=== PATIENT | female | born 1990 | race Caucasian/White ===

== ENCOUNTER 2017-01-07 07:19 | Emergency (ER) | payer OTHER ==
[2017-01-07] MEDS ORDERED: ONDANSETRON 4 MG/2 ML VIAL IVP STA (08:12)
[2017-01-07] MEDS ORDERED: SODIUM CHLORIDE 0.9% 1,000 ML IV STA (08:12)
[2017-01-07] MEDS ORDERED: FAMOTIDINE 20 MG/2 ML VIAL IV STA (08:17)
--- NOTE | 2017-01-07 08:19 | ED ---
Nausea/Vomiting/Diarrhea HPI - General Chief complaint: Nausea/Vomiting/Diarrhea Stated complaint: vomiting blood Time Seen by Provider: 01/07/17 08:11 Source: patient, RN notes reviewed Mode of arrival: ambulatory Limitations: no limitations - History of Present Illness Initial comments: 26-year-old female presents emergency Department chief complaint nausea vomiting diarrhea for 3 days. Patient states that every time she gets worse. Patient states cannot keep anything down. Patient states that she tried to rest throughout the weekend when she had work off. Patient states that she went to work today vomited violently and states that she saw a spot of blood. Patient states there is no large blood clots or large amount of blood. Patient states she has some epigastric, left upper quadrant abdominal pain. She states is has been present since she started vomiting. She does admit to some heartburn on a regular basis. Patient denies fever, chills, night sweats, chest pain or shortness of breath. Patient had a prior cholecystectomy 2014 and 2015. Patient denies any dysuria or hematuria. Patient states her diarrhea is watery. She denies any melena or hematochezia. - Related Data Previous Rx's Medication Instructions Recorded Omeprazole [PriLOSEC] 20 mg PO AC-BRKFST #14 cap 01/07/17 Ondansetron Odt [Zofran Odt] 4 mg PO Q8HR PRN #10 tab 01/07/17 Allergies Allergy/AdvReac Type Severity Reaction Status Date / Time latex Allergy Rash/Hives Verified 01/07/17 08:27 naproxen Allergy Rash/Hives Verified 01/07/17 08:27 tramadol HCl [From Ultram] Allergy Rash/Hives Verified 01/07/17 08:27 Review of Systems ROS Statement: Those systems with pertinent positive or pertinent negative responses have been documented in the HPI. ROS Other: All systems not noted in ROS Statement are negative. Past Medical History Past Medical History: No Reported History Additional Past Medical History / Comment(s): currently having urinary frequency ,abd pain,hx uti's History of Any Multi-Drug Resistant Organisms: None Reported Past Surgical History: Section, Cholecystectomy Past Anesthesia/Blood Transfusion Reactions: No Reported Reaction Additional Past Anesthesia/Blood Transfusion Reaction / Comment(s): elevated heart rate during procedure Past Psychological History: Anxiety, Bipolar Additional Psychological History / Comment(s): no meds since 17 yrs old Smoking Status: Former smoker Past Alcohol Use History: None Reported Additional Past Alcohol Use History / Comment(s): started smoking 2006 Past Drug Use History: None Reported - Past Family History Mother Family Medical History: Cancer, Coronary Artery Disease (CAD), Diabetes Mellitus , Fibromyalgia, Hypertension Additional Family Medical History / Comment(s): heart stent,uterine and ovarian ca Father Family Medical History: Myocardial Infarction ([place]) Additional Family Medical History / Comment(s): [place] x 2, committed suicide when pt at 17 yrs old. General Exam Limitations: no limitations General appearance: alert, in no apparent distress ENT exam: Present: normal oropharynx Neck exam: Present: normal inspection, full ROM. Absent: tenderness, meningismus, lymphadenopathy Respiratory exam: Present: normal lung sounds bilaterally. Absent: respiratory distress, wheezes, rales, rhonchi, stridor Cardiovascular Exam: Present: regular rate, normal rhythm, normal heart sounds. Absent: systolic murmur, diastolic murmur, rubs, gallop, clicks GI/Abdominal exam: Present: soft, tenderness (Mild to moderate epigastric, left upper quadrant tenderness), normal bowel sounds. Absent: distended, guarding, rebound, rigid Back exam: Absent: CVA tenderness (R), CVA tenderness (L) Skin exam: Present: warm, dry, intact, normal color. Absent: rash Course Vital Signs 01/07/17 01/07/17 01/07/17 07:25 08:25 09:26 Temperature 98.4 F Pulse Rate 103 H 82 82 Respiratory 18 16 16 Rate Blood Pressure 123/80 111/72 111/74 O2 Sat by Pulse 98 99 99 Oximetry Medical Decision Making - Medical Decision Making 26-year-old female presented for nausea vomiting. Patient states she feels better after Zofran. Patient was given GI cocktail for gastritis states symptoms. Patient be discharged on omeprazole and Zofran. Return parameters were discussed. - Lab Data Result diagrams: 01/07/17 07:40 01/07/17 07:40 Lab Results 01/07/17 01/07/17 01/07/17 Range/Units 07:29 07:29 07:40 WBC (3.8-10.6) k/uL RBC (3.80-5.40) m/uL Hgb (11.4-16.0) gm/dL Hct (34.0-46.0) % MCV (80.0-100.0) fL MCH (25.0-35.0) pg MCHC (31.0-37.0) g/dL RDW (11.5-15.5) % Plt Count (150-450) k/uL Neutrophils % % Lymphocytes % % Monocytes % % Eosinophils % % Basophils % % Neutrophils # (1.3-7.7) k/uL Lymphocytes # (1.0-4.8) k/uL Monocytes # (0-1.0) k/uL Eosinophils # (0-0.7) k/uL Basophils # (0-0.2) k/uL Microcytosis Sodium 140 (137-145) mmol/L Potassium 3.5 (3.5-5.1) mmol/L Chloride 109 H (98-107) mmol/L Carbon Dioxide 18 L (22-30) mmol/L Anion Gap 13 mmol/L BUN 13 (7-17) mg/dL Creatinine 0.84 (0.52-1.04) mg/dL Est GFR (MDRD) Af Amer >60 (>60 ml/min/1.73 sqM) Est GFR (MDRD) Non-Af >60 (>60 ml/min/1.73 sqM) Glucose 91 (74-99) mg/dL Calcium 9.2 (8.4-10.2) mg/dL Total Bilirubin 0.5 (0.2-1.3) mg/dL AST 32 (14-36) U/L ALT 54 H (9-52) U/L Alkaline Phosphatase 79 (38-126) U/L Total Protein 8.0 (6.3-8.2) g/dL Albumin 4.3 (3.5-5.0) g/dL Amylase 57 (30-110) U/L Lipase 171 (23-300) U/L Urine Color Yellow Urine Appearance Cloudy H (Clear) Urine pH 6.0 (5.0-8.0) Ur Specific [place] 1.024 (1.001-1.035) Urine Protein 1+ H (Negative) Urine Glucose (UA) Negative (Negative) Urine Ketones Negative (Negative) Urine Blood Moderate H (Negative) Urine Nitrite Negative (Negative) Urine Bilirubin Negative (Negative) Urine Urobilinogen <2.0 (<2.0) mg/dL Ur Leukocyte Esterase Trace H (Negative) Urine RBC 5 (0-5) /hpf Urine WBC 4 (0-5) /hpf Ur Squamous Epith Cells 3 (0-4) /hpf Urine Bacteria Rare H (None) /hpf Urine Mucus Rare H (None) /hpf Urine HCG, Qual Not Detected (Not Detectd) 01/07/17 Range/Units 07:40 WBC 11.0 H (3.8-10.6) k/uL RBC 5.19 (3.80-5.40) m/uL Hgb 13.4 (11.4-16.0) gm/dL Hct 39.6 (34.0-46.0) % MCV 76.3 L (80.0-100.0) fL MCH 25.9 (25.0-35.0) pg MCHC 34.0 (31.0-37.0) g/dL RDW 14.7 (11.5-15.5) % Plt Count 398 (150-450) k/uL Neutrophils % 70 % Lymphocytes % 21 % Monocytes % 5 % Eosinophils % 1 % Basophils % 1 % Neutrophils # 7.6 (1.3-7.7) k/uL Lymphocytes # 2.3 (1.0-4.8) k/uL Monocytes # 0.6 (0-1.0) k/uL Eosinophils # 0.1 (0-0.7) k/uL Basophils # 0.1 (0-0.2) k/uL Microcytosis Slight Sodium (137-145) mmol/L Potassium (3.5-5.1) mmol/L Chloride (98-107) mmol/L Carbon Dioxide (22-30) mmol/L Anion Gap mmol/L BUN (7-17) mg/dL Creatinine (0.52-1.04) mg/dL Est GFR (MDRD) Af Amer (>60 ml/min/1.73 sqM) Est GFR (MDRD) Non-Af (>60 ml/min/1.73 sqM) Glucose (74-99) mg/dL Calcium (8.4-10.2) mg/dL Total Bilirubin (0.2-1.3) mg/dL AST (14-36) U/L ALT (9-52) U/L Alkaline Phosphatase (38-126) U/L Total Protein (6.3-8.2) g/dL Albumin (3.5-5.0) g/dL Amylase (30-110) U/L Lipase (23-300) U/L Urine Color Urine Appearance (Clear) Urine pH (5.0-8.0) Ur Specific [place] (1.001-1.035) Urine Protein (Negative) Urine Glucose (UA) (Negative) Urine Ketones (Negative) Urine Blood (Negative) Urine Nitrite (Negative) Urine Bilirubin (Negative) Urine Urobilinogen (<2.0) mg/dL Ur Leukocyte Esterase (Negative) Urine RBC (0-5) /hpf Urine WBC (0-5) /hpf Ur Squamous Epith Cells (0-4) /hpf Urine Bacteria (None) /hpf Urine Mucus (None) /hpf Urine HCG, Qual (Not Detectd) Disposition Clinical Impression: Gastritis, Nausea & vomiting Disposition: HOME SELF-CARE Condition: Stable Instructions: Acute Nausea and Vomiting (ED) Additional Instructions: Please return to the Emergency Department if symptoms worsen or any other concerns. Prescriptions: Omeprazole [PriLOSEC] 20 mg PO AC-BRKFST #14 cap Ondansetron Odt [Zofran Odt] 4 mg PO Q8HR PRN #10 tab PRN Reason: Nausea Time of Disposition: 09:43
[2017-01-07 08:23] LABS: Basophils # (A) 0.1 k/uL (0-0.2); Basophils % (A) 1 %; CH 26.3; CHCM 34.6; Eosinophils # (A) 0.1 k/uL (0-0.7); Eosinophils % (A) 1 %; HCT 39.6 % (34.0-46.0); HDW 3.35; HGB 13.4 gm/dL (11.4-16.0); Luc # (Auto) 0.33; Luc % (Auto) 3; Lymphocytes # (A) 2.3 k/uL (1.0-4.8); Lymphocytes % (A) 21 %; MCH 25.9 pg (25.0-35.0); MCV 76.3 fL (80.0-100.0); Mean Platelet Volume 7.4; Microcytosis Slight; Monocytes # (A) 0.6 k/uL (0-1.0); Monocytes % (A) 5 %; Neutrophils # (A) 7.6 k/uL (1.3-7.7); Neutrophils % (A) 70 %; RBC 5.19 m/uL (3.80-5.40); RDW 14.7 % (11.5-15.5); WBC (Perox) 11.12
[2017-01-07 08:26] VITALS: RESP 16
[2017-01-07 08:41] LABS: ALT 54 U/L (9-52); AST 32 U/L (14-36); Alkaline Phosphatase 79 U/L (38-126); Amylase 57 U/L (30-110); Anion Gap 13 mmol/L; Blood Urea Nitrogen 13 mg/dL (7-17); Calcium 9.2 mg/dL (8.4-10.2); Carbon Dioxide 18 mmol/L (22-30); Chloride 109 mmol/L (98-107); Glucose 91 mg/dL (74-99); Non-African American GFR(MDRD) >60 (>60 ml/min/1.73 sqM); Potassium 3.5 mmol/L (3.5-5.1); Sodium 140 mmol/L (137-145); Total Bilirubin 0.5 mg/dL (0.2-1.3)
--- NOTE | 2017-01-07 08:51 | XR ---
EXAMINATION TYPE: XR KUB DATE OF EXAM: 01/07/2017 8:35 AM COMPARISON: December 15, 2010 HISTORY: Pain TECHNIQUE: Single supine KUB image of the abdomen is obtained FINDINGS: Small bowel demonstrates no evidence for dilatation or air fluid levels. Gas and fecal material is seen in non-distended colon. No convincing evidence for pneumoperitoneum. No unusual calcifications. The lung bases are clear. The osseous structures are intact. IMPRESSION: 1. Overall nonobstructive bowel gas pattern.
[2017-01-07 08:53] LABS: Appearance,Urine Cloudy (Clear); Bacteria,Urine Rare /hpf; Bilirubin,Urine Negative (Negative); Glucose,Urine (UA) Negative (Negative); Ketones,Urine Negative (Negative); Leukocyte Esterase,Urine Trace (Negative); Mucus,Urine Rare /hpf; Nitrite,Urine Negative (Negative); Particle Count 4714; Protein,Urine 1+ (Negative); RBC,Urine 5 /hpf (0-5); Specific Gravity,Urine 1.024 (1.001-1.035); Squamous Epithelial Cell,Urine 3 /hpf (0-4); UA Billing (MACRO vs. MICRO) MICRO; Urobilinogen,Urine <2.0 mg/dL (<2.0); WBC,Urine 4 /hpf (0-5)
[2017-01-07] MEDS ORDERED: MAG HYDROX/AL HYDROX/SIMETH 30 ML, HYOSCYAMINE ELIXIR 10 ML, CIMETIDINE HCL 300 MG PO STA ×3 (09:15)
[2017-01-07 09:56] VITALS: BP 124/78; PULSE 87; TEMP 97
== END 2017-01-07 09:56 | disposition home or self-care (01) ==
LOC: EC 07:19
DX: K52.9 Noninfective gastroenteritis and colitis, unspecified (principal); R11.2 Nausea with vomiting, unspecified; Z87.891 Personal history of nicotine dependence; Z90.49 Acquired absence of other specified parts of digestive tract; Z91.040 Latex allergy status; Z88.8 Allergy status to other drugs, medicaments and biological substances; Z88.5 Allergy status to narcotic agent; Z79.899 Other long term (current) drug therapy
CPT/HCPCS: 99284; 96374; 96375; 96361; 36415; 80053; 82150; 83690; 85025; 81001; 81025; 74000; J2405

== ENCOUNTER 2018-06-27 11:43 | Emergency (ER) | payer BC, OTHER ==
[2018-06-27 12:54] VITALS: TEMP 98.3
--- NOTE | 2018-06-27 13:07 | ED ---
General Adult HPI - General Chief complaint: Vaginal Bleeding Stated complaint: 5 weeks & bleeding Time Seen by Provider: 06/27/18 12:56 Source: patient, RN notes reviewed, old records reviewed Mode of arrival: ambulatory Limitations: no limitations - History of Present Illness Initial comments: 28-year-old female presents for evaluation of lower abdominal pressure and vaginal bleeding. Patient is proximally 6 weeks , last menstrual period was beginning of May. She is with one previous miscarriage. She is otherwise healthy. States that she had moderate bleeding which is improved, no clots or tissue passed. No significant pain. No dysuria or hematuria. - Related Data Previous Rx's Medication Instructions Recorded Cephalexin [Keflex] 500 mg PO Q12HR #14 cap 06/27/18 Allergies Allergy/AdvReac Type Severity Reaction Status Date / Time latex Allergy Rash/Hives Verified 06/27/18 14:03 naproxen Allergy Rash/Hives Verified 06/27/18 14:03 tramadol HCl [From Ultram] Allergy Rash/Hives Verified 06/27/18 14:03 Review of Systems ROS Statement: Those systems with pertinent positive or pertinent negative responses have been documented in the HPI. ROS Other: All systems not noted in ROS Statement are negative. Past Medical History Past Medical History: No Reported History Additional Past Medical History / Comment(s): currently having urinary frequency ,abd pain,hx uti's History of Any Multi-Drug Resistant Organisms: None Reported Past Surgical History: Section, Cholecystectomy, Orthopedic Surgery Additional Past Surgical History / Comment(s): carpal tunnel release right hand Past Anesthesia/Blood Transfusion Reactions: No Reported Reaction Additional Past Anesthesia/Blood Transfusion Reaction / Comment(s): elevated heart rate during procedure Past Psychological History: Anxiety, Bipolar Smoking Status: Former smoker Past Alcohol Use History: None Reported Past Drug Use History: None Reported - Past Family History Mother Family Medical History: Cancer, Coronary Artery Disease (CAD), Diabetes Mellitus , Fibromyalgia, Hypertension Additional Family Medical History / Comment(s): heart stent,uterine and ovarian ca Father Family Medical History: Myocardial Infarction ([place]) Additional Family Medical History / Comment(s): [place] x 2, committed suicide when pt at 17 yrs old. General Exam Limitations: no limitations General appearance: alert, in no apparent distress Head exam: Present: atraumatic, normocephalic Eye exam: Present: normal appearance, PERRL ENT exam: Present: normal exam Neck exam: Present: normal inspection. Absent: tenderness, meningismus Respiratory exam: Present: normal lung sounds bilaterally. Absent: respiratory distress, wheezes Cardiovascular Exam: Present: regular rate, normal rhythm GI/Abdominal exam: Present: soft. Absent: distended, tenderness, guarding, rebound Extremities exam: Present: normal inspection, normal capillary refill. Absent: pedal edema, calf tenderness Neurological exam: Present: alert, oriented X3, CN II-XII intact. Absent: motor sensory deficit Psychiatric exam: Present: normal affect, normal mood Skin exam: Present: warm, dry, intact. Absent: cyanosis, diaphoretic Course Vital Signs 06/27/18 06/27/18 12:50 15:00 Temperature 98.3 F Pulse Rate 86 86 Respiratory 18 16 Rate Blood Pressure 118/80 118/74 O2 Sat by Pulse 100 99 Oximetry Medical Decision Making - Medical Decision Making 28-year-old female presenting with early and vaginal bleeding. Patient has O+ blood. Hemoglobin is stable 11.6, she has normal vital signs and is well-appearing, no abdominal tenderness, no rebound or guarding. She has a beta hCG 1682. Urinalysis does show rare bacteria. Ultrasound is does show findings consistent with early IUP, likely threatened miscarriage, this does not completely rule out ectopic . Patient will receive repeat beta hCG in 48 hours. She will follow-up with her [employer]. She will return with worsening or changing abdominal pain or increased bleeding. - Lab Data Result diagrams: 06/27/18 13:05 06/27/18 13:05 Lab Results 06/27/18 06/27/18 06/27/18 Range/Units 13:00 13:00 13:05 WBC (3.8-10.6) k/uL RBC (3.80-5.40) m/uL Hgb (11.4-16.0) gm/dL Hct (34.0-46.0) % MCV (80.0-100.0) fL MCH (25.0-35.0) pg MCHC (31.0-37.0) g/dL RDW (11.5-15.5) % Plt Count (150-450) k/uL Neutrophils % % Lymphocytes % % Monocytes % % Eosinophils % % Basophils % % Neutrophils # (1.3-7.7) k/uL Lymphocytes # (1.0-4.8) k/uL Monocytes # (0-1.0) k/uL Eosinophils # (0-0.7) k/uL Basophils # (0-0.2) k/uL Sodium (137-145) mmol/L Potassium (3.5-5.1) mmol/L Chloride (98-107) mmol/L Carbon Dioxide (22-30) mmol/L Anion Gap mmol/L BUN (7-17) mg/dL Creatinine (0.52-1.04) mg/dL Est GFR (CKD-EPI)AfAm (>60 ml/min/1.73 sqM) Est GFR (CKD-EPI)NonAf (>60 ml/min/1.73 sqM) Glucose (74-99) mg/dL Calcium (8.4-10.2) mg/dL Total Bilirubin (0.2-1.3) mg/dL AST (14-36) U/L ALT (9-52) U/L Alkaline Phosphatase (38-126) U/L Total Protein (6.3-8.2) g/dL Albumin (3.5-5.0) g/dL HCG, Quant mIU/mL Urine Color Yellow Urine Appearance Clear (Clear) Urine pH 6.5 (5.0-8.0) Ur Specific [place] 1.018 (1.001-1.035) Urine Protein Trace H (Negative) Urine Glucose (UA) Negative (Negative) Urine Ketones Negative (Negative) Urine Blood Negative (Negative) Urine Nitrite Negative (Negative) Urine Bilirubin Negative (Negative) Urine Urobilinogen <2.0 (<2.0) mg/dL Ur Leukocyte Esterase Small H (Negative) Urine RBC 2 (0-5) /hpf Urine WBC 5 (0-5) /hpf Ur Squamous Epith Cells <1 (0-4) /hpf Urine Bacteria Rare H (None) /hpf Urine Mucus Rare H (None) /hpf Urine HCG, Qual Detected (Not Detectd) Blood Type O Positive Blood Type Recheck No 06/27/18 06/27/18 Range/Units 13:05 13:05 WBC 9.0 (3.8-10.6) k/uL RBC 4.33 (3.80-5.40) m/uL Hgb 11.6 (11.4-16.0) gm/dL Hct 35.8 (34.0-46.0) % MCV 82.6 (80.0-100.0) fL MCH 26.7 (25.0-35.0) pg MCHC 32.3 (31.0-37.0) g/dL RDW 14.6 (11.5-15.5) % Plt Count 318 (150-450) k/uL Neutrophils % 62 % Lymphocytes % 29 % Monocytes % 5 % Eosinophils % 2 % Basophils % 1 % Neutrophils # 5.6 (1.3-7.7) k/uL Lymphocytes # 2.6 (1.0-4.8) k/uL Monocytes # 0.5 (0-1.0) k/uL Eosinophils # 0.2 (0-0.7) k/uL Basophils # 0.1 (0-0.2) k/uL Sodium 139 (137-145) mmol/L Potassium 4.3 (3.5-5.1) mmol/L Chloride 109 H (98-107) mmol/L Carbon Dioxide 24 (22-30) mmol/L Anion Gap 6 mmol/L BUN 13 (7-17) mg/dL Creatinine 0.76 (0.52-1.04) mg/dL Est GFR (CKD-EPI)AfAm >90 (>60 ml/min/1.73 sqM) Est GFR (CKD-EPI)NonAf >90 (>60 ml/min/1.73 sqM) Glucose 82 (74-99) mg/dL Calcium 9.1 (8.4-10.2) mg/dL Total Bilirubin 0.3 (0.2-1.3) mg/dL AST 18 (14-36) U/L ALT 17 (9-52) U/L Alkaline Phosphatase 41 (38-126) U/L Total Protein 6.5 (6.3-8.2) g/dL Albumin 3.6 (3.5-5.0) g/dL HCG, Quant 1682.1 mIU/mL Urine Color Urine Appearance (Clear) Urine pH (5.0-8.0) Ur Specific [place] (1.001-1.035) Urine Protein (Negative) Urine Glucose (UA) (Negative) Urine Ketones (Negative) Urine Blood (Negative) Urine Nitrite (Negative) Urine Bilirubin (Negative) Urine Urobilinogen (<2.0) mg/dL Ur Leukocyte Esterase (Negative) Urine RBC (0-5) /hpf Urine WBC (0-5) /hpf Ur Squamous Epith Cells (0-4) /hpf Urine Bacteria (None) /hpf Urine Mucus (None) /hpf Urine HCG, Qual (Not Detectd) Blood Type Blood Type Recheck Disposition Clinical Impression: Threatened miscarriage in early Disposition: HOME SELF-CARE Condition: Good Instructions: Threatened Miscarriage (ED) Prescriptions: Cephalexin [Keflex] 500 mg PO Q12HR #14 cap Is patient prescribed a controlled substance at d/c from ED?: No Referrals: Frankie Tipton NPC [REFERRING] - 1-2 days Marva Conteh MD [STAFF PHYSICIAN] - 1-2 days Time of Disposition: 15:30
[2018-06-27 13:23] LABS: Appearance,Urine Clear (Clear); Bacteria,Urine Rare /hpf; Bilirubin,Urine Negative (Negative); Blood,Urine Negative (Negative); Color,Urine Yellow; Glucose,Urine (UA) Negative (Negative); Ketones,Urine Negative (Negative); Leukocyte Esterase,Urine Small (Negative); Mucus,Urine Rare /hpf; Nitrite,Urine Negative (Negative); PH, Urine 6.5 (5.0-8.0); Protein,Urine Trace (Negative); RBC,Urine 2 /hpf (0-5); Specific Gravity,Urine 1.018 (1.001-1.035); Squamous Epithelial Cell,Urine <1 /hpf (0-4); Urobilinogen,Urine <2.0 mg/dL (<2.0); WBC,Urine 5 /hpf (0-5)
[2018-06-27 13:43] LABS: Basophils # (A) 0.1 k/uL (0-0.2); Basophils % (A) 1 %; Eosinophils # (A) 0.2 k/uL (0-0.7); Eosinophils % (A) 2 %; HCT 35.8 % (34.0-46.0); HGB 11.6 gm/dL (11.4-16.0); Lymphocytes # (A) 2.6 k/uL (1.0-4.8); Lymphocytes % (A) 29 %; MCH 26.7 pg (25.0-35.0); MCHC 32.3 g/dL (31.0-37.0); MCV 82.6 fL (80.0-100.0); Mean Platelet Volume 7.4; Monocytes # (A) 0.5 k/uL (0-1.0); Monocytes % (A) 5 %; Neutrophils # (A) 5.6 k/uL (1.3-7.7); Neutrophils % (A) 62 %; Platelet Count 318 k/uL (150-450); RBC 4.33 m/uL (3.80-5.40); RDW 14.6 % (11.5-15.5)
[2018-06-27 13:48] LABS: ALT 17 U/L (9-52); AST 18 U/L (14-36); Albumin 3.6 g/dL (3.5-5.0); Alkaline Phosphatase 41 U/L (38-126); Anion Gap 6 mmol/L; Blood Urea Nitrogen 13 mg/dL (7-17); Calcium 9.1 mg/dL (8.4-10.2); Carbon Dioxide 24 mmol/L (22-30); Chloride 109 mmol/L (98-107); Glucose 82 mg/dL (74-99); Potassium 4.3 mmol/L (3.5-5.1); Sodium 139 mmol/L (137-145); Total Bilirubin 0.3 mg/dL (0.2-1.3); Total Protein 6.5 g/dL (6.3-8.2)
[2018-06-27 14:02] LABS: HCG,Quantitative Serum 1682.1 mIU/mL
[2018-06-27 15:01] VITALS: RESP 16
--- NOTE | 2018-06-27 15:19 | US ---
EXAMINATION TYPE: Transabdominal DATE OF EXAM: 12/16/17 COMPARISON: NONE CLINICAL HISTORY: Pain. Positive beta hCG test. EXAM PERFORMED: Transvaginal (TV) and Transabdominal (TA) to better evaluate endometrium and ovaries EXAM MEASUREMENTS: GESTATIONAL AGE / DATING Physician Established: Not yet established Dates by LMP: (5 weeks/4 days) EDC: 02/23/2019 Dates by First Scan: No previous this is first scan Dates by Current Scan for: Unable to date by today's study MATERNAL ANATOMY Uterus: 8.7 x 4.6 x 5.6 cm; anteverted Endometrium: 1.8 cm; complex and thickened ?gest sac measuring OOR (0.5 x 0.3 x 0.5 cm) inferior to h ypoechoic area in endo (0.4 x 0.3 x 1.5cm) ?Subchorionic hemorrhage vs other etiology Right Ovary: 2.6 x 1.4 x 2.0 cm; wnl Left Ovary: 3.5 x 2.1 x 2.5 cm; Hypoechoic area left ovary with peripheral flow ?corpus luteum (1.6 x 1.7 x 1.7cm) Post CDS / Adnexa: Wnl Presence of free fluid: No Presence of corpus luteal cyst: ?Corpus luteum (1.6 x 1.7 x 1.7cm) left ovary Presence of subchorionic bleed: Hypoechoic area in endo (0.4 x 0.3 x 1.5cm) ?Subchorionic hemorrhage vs other etiology GESTATION / SURVEY MSD: 0.4 cm OOR Date of LMP: 05/19/2018 Beta HcG (if available): Not available at this time There is heterogeneous anteverted uterus. Endometrium is thickened up to 17 mm. There is oval anechoi c area measuring 5 x 3 x 5 mm. Superior to this there is curvilinear anechoic 1.4 x 0.3 x 1.5 cm. Fin dings could reflect early gestational sac and adjacent small subchorionic hemorrhage. No yolk sac or pole is clearly seen. No free fluid is seen in pelvic cul-de-sac. Both ovaries are identified. Within left ovary there is 1.7 cm thin-walled cyst favoring corpus lutea l cyst. No suspicious extraovarian adnexal lesions are seen. IMPRESSION: Findings favor too early to visualize intrauterine with small adjacent implantation or subc horionic hemorrhage but spontaneous is in differential and ectopic is not excluded . Serial beta hCG and ultrasound follow-up is advised.
[2018-06-27 15:47] VITALS: BP 120/76; PULSE 64
== END 2018-06-27 15:40 | disposition home or self-care (01) ==
LOC: EC 11:43
DX: O20.0 Threatened abortion (principal); Z3A.01 Less than 8 weeks gestation of pregnancy; Z87.891 Personal history of nicotine dependence; Z91.040 Latex allergy status; Z88.6 Allergy status to analgesic agent
CPT/HCPCS: 36415; 76801; 76817; 80053; 81001; 81025; 84702; 85025; 86900; 86901; 99284

== ENCOUNTER 2018-06-29 08:25 | Emergency (ER) | payer BC ==
[2018-06-29] MEDS ORDERED: SODIUM CHLORIDE 0.9% 1,000 ML IV ONE (08:58)
[2018-06-29] MEDS ORDERED: ACETAMINOPHEN TAB 500 MG TAB PO STA (08:58)
[2018-06-29] MEDS ORDERED: ONDANSETRON 4 MG/2 ML VIAL IVP STA (08:58)
--- NOTE | 2018-06-29 09:04 | ED ---
General Adult HPI - General Chief complaint: Abdominal Pain Stated complaint: Abd.pain Source: patient Mode of arrival: ambulatory Limitations: no limitations - History of Present Illness Initial comments: Dictation was produced using [employer] dictation software. please excuse any grammatical, word or spelling errors. Chief Complaint: 38-year-old female who is with one previous miscarriage presents with persistent pelvic pain. History of Present Illness: A 38-year-old female who was seen in the emergency department 2 days ago. Patient was evaluated for vaginal bleeding your . She is allegedly 6 weeks based on last menstrual period. She was evaluated and ultrasound did not show any signs of intrauterine . She was told to follow up with [facility] for repeat beta hCG. She came today because her pain was much worse. She denies any history of ectopic . Denies any constitutional symptoms. Patient is expressing pain in her pelvic region that is sharp without any radiation. States pain is more severe that she is ever had with . The ROS documented in this emergency department record has been reviewed and confirmed by me. Those systems with pertinent positive or negative responses have been documented in the HPI. All other systems are other negative and/or noncontributory. - Related Data Home Medications Medication Instructions Recorded Confirmed Gummies 1 tab PO DAILY 06/29/18 06/29/18 Previous Rx's Medication Instructions Recorded Cephalexin [Keflex] 500 mg PO Q12HR #14 cap 06/27/18 Acetaminophen [Tylenol] 1,000 mg PO Q4-6H PRN #24 tab 06/29/18 Allergies Allergy/AdvReac Type Severity Reaction Status Date / Time latex Allergy Rash/Hives Verified 06/29/18 08:54 naproxen Allergy Rash/Hives Verified 06/29/18 08:54 tramadol HCl [From Ultram] Allergy Rash/Hives Verified 06/29/18 08:54 Review of Systems ROS Statement: Those systems with pertinent positive or pertinent negative responses have been documented in the HPI. ROS Other: All systems not noted in ROS Statement are negative. Past Medical History Past Medical History: No Reported History Additional Past Medical History / Comment(s): currently having urinary frequency ,abd pain,hx uti's History of Any Multi-Drug Resistant Organisms: None Reported Past Surgical History: Section, Cholecystectomy, Orthopedic Surgery Additional Past Surgical History / Comment(s): carpal tunnel release right hand Past Anesthesia/Blood Transfusion Reactions: No Reported Reaction Additional Past Anesthesia/Blood Transfusion Reaction / Comment(s): elevated heart rate during procedure Past Psychological History: Anxiety, Bipolar Smoking Status: Former smoker Past Alcohol Use History: None Reported Past Drug Use History: None Reported - Past Family History Mother Family Medical History: Cancer, Coronary Artery Disease (CAD), Diabetes Mellitus , Fibromyalgia, Hypertension Additional Family Medical History / Comment(s): heart stent,uterine and ovarian ca Father Family Medical History: Myocardial Infarction ([place]) Additional Family Medical History / Comment(s): MD x 2, committed suicide when pt at 17 yrs old. General Exam - General Exam Comments Initial Comments: PHYSICAL EXAM: General Impression: Alert and oriented x3, acute distress secondary to pain HEENT: Normocephalic atraumatic, extra-ocular movements intact, pupils equal and reactive to light bilaterally, mucous membranes moist. Cardiovascular: Heart regular rate and rhythm, S1&S2 audible, no murmurs, rubs or gallops Chest: Lungs clear to auscultation bilaterally, no rhonchi, no wheeze, no rales Abdomen: Suprapubic tenderness to palpation Musculoskeletal: Pulses present and equal in all extremities, no peripheral edema Motor: Power 5/5 bilaterally, no focal deficits noted Neurological: CN II-XII grossly intact, no focal motor or sensory deficits noted Skin: Intact with no visualized rashes Psych: Normal affect and mood Limitations: no limitations Course Vital Signs 06/29/18 06/29/18 08:34 11:22 Temperature 98.4 F 98.9 F Pulse Rate 95 70 Respiratory 20 18 Rate Blood Pressure 124/84 107/72 O2 Sat by Pulse 100 99 Oximetry Medical Decision Making - Medical Decision Making ED course: 28-year-old female presents with pelvic pain and . Patient was seen here 2 days ago where she was evaluated. She was given instructions to follow up with [facility] for repeat beta-hCG in 48 hours. Patient's initial beta Quant was 1682. Vital signs upon arrival are stable.Laboratory evaluation obtained. CBC unremarkable. Hemoglobin stable at 12.5. Coag panel is unremarkable. Metabolic panel is unremarkable. Beta hCG is 2168. There is some concern of ectopic given ultrasound findings and progression of beta Quant. Discussed patient case with Dr. Conteh. Patient is O+ blood type from recent lab. [facility] discussed ultrasound findings with radiologist. She believes that is still early. Pelvic exam did show some mild adnexal tenderness. [facility] recommendation was to have patient discharged with repeat beta quantitative in 48 hours and to follow-up with her [facility] clinic. Patient is understandable and agreeable to this plan. She is told to take Tylenol for her pain. Patient told to return if she experience he is worsening pain, vaginal bleeding or lightheadedness. - Lab Data Result diagrams: 06/29/18 09:28 06/29/18 09:28 Lab Results 06/29/18 06/29/18 06/29/18 Range/Units 09:28 09:28 09:28 WBC 9.6 (3.8-10.6) k/uL RBC 4.73 (3.80-5.40) m/uL Hgb 12.5 (11.4-16.0) gm/dL Hct 37.5 (34.0-46.0) % MCV 79.4 L (80.0-100.0) fL MCH 26.5 (25.0-35.0) pg MCHC 33.4 (31.0-37.0) g/dL RDW 14.1 (11.5-15.5) % Plt Count 320 (150-450) k/uL Neutrophils % 70 % Lymphocytes % 23 % Monocytes % 4 % Eosinophils % 2 % Basophils % 1 % Neutrophils # 6.7 (1.3-7.7) k/uL Lymphocytes # 2.2 (1.0-4.8) k/uL Monocytes # 0.4 (0-1.0) k/uL Eosinophils # 0.2 (0-0.7) k/uL Basophils # 0.1 (0-0.2) k/uL PT 10.1 (9.0-12.0) sec INR 1.0 (<1.2) Sodium 139 (137-145) mmol/L Potassium 4.9 (3.5-5.1) mmol/L Chloride 107 (98-107) mmol/L Carbon Dioxide 24 (22-30) mmol/L Anion Gap 8 mmol/L BUN 8 (7-17) mg/dL Creatinine 0.64 (0.52-1.04) mg/dL Est GFR (CKD-EPI)AfAm >90 (>60 ml/min/1.73 sqM) Est GFR (CKD-EPI)NonAf >90 (>60 ml/min/1.73 sqM) Glucose 91 (74-99) mg/dL Calcium 9.1 (8.4-10.2) mg/dL HCG, Quant 2168.7 mIU/mL Disposition Clinical Impression: Pelvic pain complicating Disposition: HOME SELF-CARE Condition: Good Prescriptions: Acetaminophen [Tylenol] 1,000 mg PO Q4-6H PRN #24 tab PRN Reason: Pain Is patient prescribed a controlled substance at d/c from ED?: No Referrals: Tim Rob MD [Primary Care Provider] - 1-2 days Marva Conteh MD [STAFF PHYSICIAN] - 1-2 days Time of Disposition: 12:32
[2018-06-29 10:05] LABS: Basophils # (A) 0.1 k/uL (0-0.2); Basophils % (A) 1 %; Eosinophils # (A) 0.2 k/uL (0-0.7); Eosinophils % (A) 2 %; HCT 37.5 % (34.0-46.0); HGB 12.5 gm/dL (11.4-16.0); Lymphocytes # (A) 2.2 k/uL (1.0-4.8); Lymphocytes % (A) 23 %; MCH 26.5 pg (25.0-35.0); MCHC 33.4 g/dL (31.0-37.0); MCV 79.4 fL (80.0-100.0); Mean Platelet Volume 7.1; Monocytes # (A) 0.4 k/uL (0-1.0); Monocytes % (A) 4 %; Neutrophils # (A) 6.7 k/uL (1.3-7.7); Neutrophils % (A) 70 %; Platelet Count 320 k/uL (150-450); RBC 4.73 m/uL (3.80-5.40); RDW 14.1 % (11.5-15.5); WBC 9.6 k/uL (3.8-10.6)
[2018-06-29 10:09] LABS: Prothrombin Time 10.1 sec (9.0-12.0)
[2018-06-29 10:14] LABS: Anion Gap 8 mmol/L; Blood Urea Nitrogen 8 mg/dL (7-17); Calcium 9.1 mg/dL (8.4-10.2); Carbon Dioxide 24 mmol/L (22-30); Chloride 107 mmol/L (98-107); Glucose 91 mg/dL (74-99); Potassium 4.9 mmol/L (3.5-5.1); Sodium 139 mmol/L (137-145)
[2018-06-29 10:31] LABS: HCG,Quantitative Serum 2168.7 mIU/mL
[2018-06-29 11:24] VITALS: RESP 18
--- NOTE | 2018-06-29 11:29 | US ---
EXAMINATION TYPE: Transabdominal DATE OF EXAM: 12/16/17 COMPARISON: 06/27/2018 US CLINICAL HISTORY: 28-year-old female pain. Pt states pelvic pain EXAM PERFORMED: Transabdominal (TA) FINDINGS: EXAM MEASUREMENTS: GESTATIONAL AGE / DATING Physician Established: Not yet established Dates by LMP: (5 weeks/6 days) EDC: 02/23/2019 Dates by First Scan: Too early to calculate dates Dates by Current Scan for: Too early to calculate dates MATERNAL ANATOMY Uterus: 9.5 x 4.9 x 4.5 cm Right Ovary: 2.2 x 1.9 x 2.2 cm Left Ovary: 3.1 x 2.3 x 1.8 cm Post CDS / Adnexa: wnl Presence of free fluid: No Presence of corpus luteal cyst: Left ovary= 1.7 x 1.4 x 1.5 cm Presence of subchorionic bleed: Yes, unchanged from prior exam= 1.1 x 0.4 x 1.3 cm GESTATION / SURVEY CRL: Not visualized at this time MSD: 0.5 cm Too early to calculate dates. Previously measuring 4 mm. Yolk Sac: Not visualized at this time Date of LMP: 05/19/2018 Beta HcG (if available): Not available at this time Possible early gestational sac with sub-chorionic bleed, essentially unchanged from prior exam 2 days ago IMPRESSION: Tiny cystic locule along the endometrium currently measures 5 mm versus 4 mm compared to 2 days ago. No yolk sac or pole at this time. There is a 1.3 cm perigestational bleed redemonstrated. Curre nt differential considerations remain the same, early intrauterine , failed , and a pseudogestational sac of a nonvisualized ectopic . Recommend serial beta-hCG and ultrasound follow-up to ensure the appearance of a normal pole with cardiac activity.
[2018-06-29 12:50] VITALS: BP 110/68; PULSE 77; TEMP 98.2
[2018-07-01 16:00] LABS: C. trachomatis,PCR Negative (Neg,Equiv); Chlamydia trachomatis Source Urine
[2018-07-01 16:05] LABS: N. gonorrhoeae,PCR Negative (Neg,Equiv); Neisseria Source Urine
== END 2018-06-29 12:48 | disposition home or self-care (01) ==
LOC: EC 08:25
DX: O26.891 Other specified pregnancy related conditions, first trimester (principal); O20.9 Hemorrhage in early pregnancy, unspecified; R10.2 Pelvic and perineal pain; Z87.891 Personal history of nicotine dependence; Z91.040 Latex allergy status; Z88.6 Allergy status to analgesic agent; Z3A.01 Less than 8 weeks gestation of pregnancy; Z98.890 Other specified postprocedural states
CPT/HCPCS: 36415; 80048; 85025; 85610; 84702; 87808; 87491; 87591; 87070; 87205; 76801; 99284; 96374; 96361; J2405

== ENCOUNTER → 2018-07-01 | Outpatient (CLI) | payer BC | END | disposition home or self-care (01) | LOC: LABWHC1 08:23 | PROVIDERS: ATTEND Emergency Medicine | DX: O26.891 Other specified pregnancy related conditions, first trimester (principal); O20.9 Hemorrhage in early pregnancy, unspecified; Z3A.00 Weeks of gestation of pregnancy not specified | CPT/HCPCS: 36415; 84702 ==

== ENCOUNTER 2019-04-30 15:36 | Emergency (ER) | payer BC, OTHER ==
[2019-04-30 15:40] VITALS: RESP 18; TEMP 98.3
[2019-04-30 16:16] LABS: Appearance,Urine Clear (Clear); Basophils # (A) 0.1 k/uL (0-0.2); Basophils % (A) 1 %; Bilirubin,Urine Negative (Negative); Blood,Urine Negative (Negative); Color,Urine Yellow; Eosinophils # (A) 0.2 k/uL (0-0.7); Eosinophils % (A) 2 %; Glucose,Urine (UA) Negative (Negative); HCT 36.8 % (34.0-46.0); HGB 12.3 gm/dL (11.4-16.0); Ketones,Urine Trace (Negative); Leukocyte Esterase,Urine Negative (Negative); Lymphocytes # (A) 2.9 k/uL (1.0-4.8); Lymphocytes % (A) 29 %; MCH 27.8 pg (25.0-35.0); MCHC 33.3 g/dL (31.0-37.0); MCV 83.5 fL (80.0-100.0); Mean Platelet Volume 7.5; Monocytes # (A) 0.4 k/uL (0-1.0); Monocytes % (A) 4 %; Mucus,Urine Rare /hpf; Neutrophils % (A) 62 %; Nitrite,Urine Negative (Negative); PH, Urine 6.5 (5.0-8.0); Platelet Count 361 k/uL (150-450); Protein,Urine 1+ (Negative); RBC 4.41 m/uL (3.80-5.40); RDW 15.3 % (11.5-15.5); Specific Gravity,Urine 1.036 (1.001-1.035); Squamous Epithelial Cell,Urine <1 /hpf (0-4); Urobilinogen,Urine <2.0 mg/dL (<2.0); WBC 9.7 k/uL (3.8-10.6); WBC,Urine <1 /hpf (0-5)
[2019-04-30 16:25] LABS: Albumin 4.1 g/dL (3.5-5.0); Calcium 9.3 mg/dL (8.4-10.2); Potassium 4.3 mmol/L (3.5-5.1); Total Bilirubin 0.2 mg/dL (0.2-1.3); Total Protein 7.3 g/dL (6.3-8.2)
--- NOTE | 2019-04-30 16:45 | ED ---
General Adult HPI - General Chief complaint: Vaginal Bleeding Stated complaint: Female Time Seen by Provider: 04/30/19 15:44 Source: patient, RN notes reviewed, old records reviewed Mode of arrival: ambulatory Limitations: no limitations - History of Present Illness Initial comments: 28-year-old female patient with past medical history of spontaneous in December chief complaint of intermenstrual bleeding. Patient ports that she has had vaginal bleeding 3 times this month as well as associated suprapubic cramping. Patient states that she is not this time. Denies any other complaints at this time. Systemic: Pt denies fatigue, fever/chills, rash. Pt denies weakness, night sweats, weight loss. Neuro: Pt denies headache, visual disturbances, syncope or pre-syncope. HEENT: Pt denies ocular discharge or irritation, otalgia, rhinorrhea, pharyngitis or notable lymphadenopathy. Cardiopulmonary: Pt denies chest pain, SOB, heart palpitations, dyspnea on exertion. Abdominal/GI: Pt denies abdominal pain, n/v/d. : Pt denies dysuria, burning w/ urination, frequency/urgency. Denies new onset urinary or bowel incontinence. MSK: Pt denies myalgia, loss of strength or function in extremities. Neuro: Pt denies new onset weakness, paresthesias. - Related Data Home Medications Medication Instructions Recorded Confirmed Gummies 1 tab PO DAILY 06/29/18 06/29/18 Previous Rx's Medication Instructions Recorded Cephalexin [Keflex] 500 mg PO Q12HR #14 cap 06/27/18 Acetaminophen [Tylenol] 1,000 mg PO Q4-6H PRN #24 tab 06/29/18 Allergies Allergy/AdvReac Type Severity Reaction Status Date / Time latex Allergy Rash/Hives Verified 04/30/19 15:40 naproxen Allergy Rash/Hives Verified 04/30/19 15:40 tramadol HCl [From Ultra] Allergy Rash/Hives Verified 04/30/19 15:40 Review of Systems ROS Statement: Those systems with pertinent positive or pertinent negative responses have been documented in the HPI. ROS Other: All systems not noted in ROS Statement are negative. Past Medical History Past Medical History: No Reported History Additional Past Medical History / Comment(s): currently having urinary frequency,abd pain,hx uti's History of Any Multi-Drug Resistant Organisms: None Reported Past Surgical History: Section, Cholecystectomy, Hernia Repair, Orthopedic Surgery Additional Past Surgical History / Comment(s): carpal tunnel release right hand Past Anesthesia/Blood Transfusion Reactions: No Reported Reaction Additional Past Anesthesia/Blood Transfusion Reaction / Comment(s): elevated heart rate during procedure Past Psychological History: Anxiety, Bipolar Smoking Status: Former smoker Past Alcohol Use History: Rare Past Drug Use History: None Reported - Past Family History Mother Family Medical History: Cancer, Coronary Artery Disease (CAD), Diabetes Mellitus, Fibromyalgia, Hypertension Additional Family Medical History / Comment(s): heart stent,uterine and ovarian ca Father Family Medical History: Myocardial Infarction ([place]) Additional Family Medical History / Comment(s): [place] x 2, committed suicide when pt at 17 yrs old. General Exam - General Exam Comments Initial Comments: Constitutional: NAD, AOX3, Pt has pleasant affect. HEENT: NC/AT, trachea midline, neck supple, no lymphadenopathy. Posterior pharynx non erythematous, without exudates. External ears appear normal, without discharge. Mucous membranes moist. Eyes PERRLA, EOM intact. There is no scleral icterus. No pallor noted. Cardiopulmonary: RRR, no murmurs, rubs or gallops, no JVD noted. Lungs CTAB in anterior and posterior kauffman. No peripheral edema. Abdominal exam: Abdomen soft and non-distended. Abdomen non-tender to palpation in all 4 quadrants. Bowel sounds active in LLQ. No hepatosplenomegaly. No ecchymosis Neuro: CN II-XII grossly intact. No nuchal rigidity. No raccon eyes, no vasquez sign, no hemotympanum. No cervical spinal tenderness. MSK: No posterior calf tenderness bilaterally, homans sign negative bilaterally. Posterior tibialis and radial pulse +2 bilaterally. Sensation intact in upper and lower extremities. Full active ROM in upper and lower extremities, 5/5 stregnth. Limitations: no limitations Course Vital Signs 04/30/19 15:37 Temperature 98.3 F Pulse Rate 80 Respiratory 18 Rate Blood Pressure 122/80 O2 Sat by Pulse 99 Oximetry Medical Decision Making - Medical Decision Making 28-year-old female patient with past medical history of spontaneous in December chief complaint of intermenstrual bleeding. Patient ports that she has had vaginal bleeding 3 times this month as well as associated suprapubic cramping. Patient states that she is not this time. Denies any other complaints at this time. Patient vital signs stable, afebrile. Physical exam did not acute pathology. Patient offered and declined pelvic exam. Investigation is not impressive. Transvaginal ultrasound did not display acute process. Patient discharged, will follow up with previously established of his history and. Case discussed with Dr. Gomez. - Lab Data Result diagrams: 04/30/19 16:06 04/30/19 16:06 Lab Results 04/30/19 04/30/19 04/30/19 Range/Units 16:06 16:06 16:06 WBC 9.7 (3.8-10.6) k/uL RBC 4.41 (3.80-5.40) m/uL Hgb 12.3 (11.4-16.0) gm/dL Hct 36.8 (34.0-46.0) % MCV 83.5 (80.0-100.0) fL MCH 27.8 (25.0-35.0) pg MCHC 33.3 (31.0-37.0) g/dL RDW 15.3 (11.5-15.5) % Plt Count 361 (150-450) k/uL Neutrophils % 62 % Lymphocytes % 29 % Monocytes % 4 % Eosinophils % 2 % Basophils % 1 % Neutrophils # 6.0 (1.3-7.7) k/uL Lymphocytes # 2.9 (1.0-4.8) k/uL Monocytes # 0.4 (0-1.0) k/uL Eosinophils # 0.2 (0-0.7) k/uL Basophils # 0.1 (0-0.2) k/uL Sodium 140 (137-145) mmol/L Potassium 4.3 (3.5-5.1) mmol/L Chloride 109 H (98-107) mmol/L Carbon Dioxide 22 (22-30) mmol/L Anion Gap 9 mmol/L BUN 14 (7-17) mg/dL Creatinine 1.03 (0.52-1.04) mg/dL Est GFR (CKD-EPI)AfAm 86 (>60 ml/min/1.73 sqM) Est GFR (CKD-EPI)NonAf 75 (>60 ml/min/1.73 sqM) Glucose 91 (74-99) mg/dL Calcium 9.3 (8.4-10.2) mg/dL Total Bilirubin 0.2 (0.2-1.3) mg/dL AST 17 (14-36) U/L ALT 10 (9-52) U/L Alkaline Phosphatase 63 (38-126) U/L Total Protein 7.3 (6.3-8.2) g/dL Albumin 4.1 (3.5-5.0) g/dL Urine Color Urine Appearance (Clear) Urine pH (5.0-8.0) Ur Specific [place] (1.001-1.035) Urine Protein (Negative) Urine Glucose (UA) (Negative) Urine Ketones (Negative) Urine Blood (Negative) Urine Nitrite (Negative) Urine Bilirubin (Negative) Urine Urobilinogen (<2.0) mg/dL Ur Leukocyte Esterase (Negative) Urine WBC (0-5) /hpf Ur Squamous Epith Cells (0-4) /hpf Urine Mucus (None) /hpf Urine HCG, Qual Not Detected (Not Detectd) 04/30/19 Range/Units 16:06 WBC (3.8-10.6) k/uL RBC (3.80-5.40) m/uL Hgb (11.4-16.0) gm/dL Hct (34.0-46.0) % MCV (80.0-100.0) fL MCH (25.0-35.0) pg MCHC (31.0-37.0) g/dL RDW (11.5-15.5) % Plt Count (150-450) k/uL Neutrophils % % Lymphocytes % % Monocytes % % Eosinophils % % Basophils % % Neutrophils # (1.3-7.7) k/uL Lymphocytes # (1.0-4.8) k/uL Monocytes # (0-1.0) k/uL Eosinophils # (0-0.7) k/uL Basophils # (0-0.2) k/uL Sodium (137-145) mmol/L Potassium (3.5-5.1) mmol/L Chloride (98-107) mmol/L Carbon Dioxide (22-30) mmol/L Anion Gap mmol/L BUN (7-17) mg/dL Creatinine (0.52-1.04) mg/dL Est GFR (CKD-EPI)AfAm (>60 ml/min/1.73 sqM) Est GFR (CKD-EPI)NonAf (>60 ml/min/1.73 sqM) Glucose (74-99) mg/dL Calcium (8.4-10.2) mg/dL Total Bilirubin (0.2-1.3) mg/dL AST (14-36) U/L ALT (9-52) U/L Alkaline Phosphatase (38-126) U/L Total Protein (6.3-8.2) g/dL Albumin (3.5-5.0) g/dL Urine Color Yellow Urine Appearance Clear (Clear) Urine pH 6.5 (5.0-8.0) Ur Specific [place] 1.036 H (1.001-1.035) Urine Protein 1+ H (Negative) Urine Glucose (UA) Negative (Negative) Urine Ketones Trace H (Negative) Urine Blood Negative (Negative) Urine Nitrite Negative (Negative) Urine Bilirubin Negative (Negative) Urine Urobilinogen <2.0 (<2.0) mg/dL Ur Leukocyte Esterase Negative (Negative) Urine WBC <1 (0-5) /hpf Ur Squamous Epith Cells <1 (0-4) /hpf Urine Mucus Rare H (None) /hpf Urine HCG, Qual (Not Detectd) Disposition Clinical Impression: Dysfunctional uterine bleeding Disposition: HOME SELF-CARE Condition: Stable Instructions (If sedation given, give patient instructions): Dysfunctional Uterine Bleeding (ED) Additional Instructions: Patient to adhere to previously discussed treatment plan and will take medication(s) as directed. Patient to follow up with PCP in 1-2 days. Patient to return to ED if symptoms do not improve. Follow-up witth previously established [facility]. Is patient prescribed a controlled substance at d/c from ED?: No Referrals: Bobbi Santiago MD [Primary Care Provider] - 1-2 days
--- NOTE | 2019-04-30 17:01 | US ---
EXAMINATION TYPE: US transvaginal DATE OF EXAM: 04/30/2019 COMPARISON: NONE CLINICAL HISTORY: Pain. Irregular menses, 3 within this month, pelvic pain TECHNIQUE: Transvaginal (TV). Date of LMP: 04/28/19 EXAM MEASUREMENTS: Uterus: 8.4 x 3.7 x 5.4 cm Endometrial Stripe: 0.4 cm Right Ovary: 2.7 x 1.9 x 1.6 cm Left Ovary: 3.0 x 1.9 x 1.9 cm 1. Uterus: Anteverted 2. Endometrium: appears wnl 3. Right Ovary: follicles noted 4. Left Ovary: follicles noted, dominant follicle measures 13 mm within the left ovary Spectral, color and waveform doppler imaging shows arterial and venous flow within the ovaries, col or flow; there is no evidence for ovarian torsion. 5. Bilateral Adnexa: wnl 6. Posterior cul-de-sac: wnl IMPRESSION: Nonspecific findings described above.
[2019-04-30 17:43] VITALS: BP 117/64; PULSE 71
== END 2019-04-30 17:43 | disposition home or self-care (01) ==
LOC: EC 15:36
DX: N93.8 Other specified abnormal uterine and vaginal bleeding (principal); R10.30 Lower abdominal pain, unspecified; Z90.49 Acquired absence of other specified parts of digestive tract; Z87.891 Personal history of nicotine dependence; Z53.29 Procedure and treatment not carried out because of patient's decision for other reasons; Z88.6 Allergy status to analgesic agent; Z88.5 Allergy status to narcotic agent; Z91.040 Latex allergy status
CPT/HCPCS: 36415; 76830; 80053; 81001; 81025; 85025; 93975; 99284

== ENCOUNTER 2020-03-31 18:46 | Emergency (ER) | payer BC, OTHER ==
[2020-03-31 19:01] VITALS: BP 134/87; PULSE 82; RESP 20; TEMP 98.8
--- NOTE | 2020-03-31 19:53 | ED ---
General Adult HPI - General Chief complaint: Shortness of Breath Stated complaint: SOB Time Seen by Provider: 03/31/20 19:12 Source: patient Mode of arrival: ambulatory Limitations: no limitations - History of Present Illness Initial comments: Patient is a 29-year-old female presenting to the emergency department with a chief complaint of cough congestion shortness of breath. Patient states the symptoms began yesterday with a fever. States she took some [id number] antipyretics which helped decrease it. Patient reports today she woke up with a sore throat, sinus congestion and a productive cough. Patient states she stopped smoking approximately one week ago. She denies any history of asthma. States she feels fatigued. She also reports some shortness of breath on exertion. She denies any chest pain, abdominal pain back pain nausea vomiting or diarrhea. Patient also reports a gradual onset of a headache today. She denies neck stiffness, blurry vision, one-sided weakness or paresthesias. States she works 2 jobs and is in constant contact with people so she could be possibly exposed to coronavirus patients. Patient states she was tested earlier date for Covid this [facility]. Denies any worse changes or drooling. Denies unilateral leg swelling. Denies any metastatic disease or chemotherapy. Denies history of PE or DVT. Denies . - Related Data Home Medications Medication Instructions Recorded Confirmed Gummies 1 tab PO DAILY 06/29/18 06/29/18 Previous Rx's Medication Instructions Recorded Cephalexin [Keflex] 500 mg PO Q12HR #14 cap 06/27/18 Acetaminophen [Tylenol] 1,000 mg PO Q4-6H PRN #24 tab 06/29/18 Amoxicillin/Potassium Clav 1 tab PO Q12HR #20 tab 03/31/20 [Augmentin 875-125 Tablet] Allergies Allergy/AdvReac Type Severity Reaction Status Date / Time latex Allergy Rash/Hives Verified 03/31/20 19:01 naproxen Allergy Rash/Hives Verified 03/31/20 19:01 tramadol HCl [From Ultram] Allergy Rash/Hives Verified 03/31/20 19:01 Review of Systems ROS Statement: Those systems with pertinent positive or pertinent negative responses have been documented in the HPI. ROS Other: All systems not noted in ROS Statement are negative. Past Medical History Past Medical History: No Reported History Additional Past Medical History / Comment(s): currently having urinary frequency,abd pain,hx uti's History of Any Multi-Drug Resistant Organisms: None Reported Past Surgical History: Section, Cholecystectomy, Hernia Repair, Orthopedic Surgery Additional Past Surgical History / Comment(s): carpal tunnel release right hand Past Anesthesia/Blood Transfusion Reactions: No Reported Reaction Additional Past Anesthesia/Blood Transfusion Reaction / Comment(s): elevated heart rate during procedure Past Psychological History: Anxiety, Bipolar Smoking Status: Former smoker Past Alcohol Use History: Rare Past Drug Use History: Marijuana - Past Family History Mother Family Medical History: Cancer, Coronary Artery Disease (CAD), Diabetes Mellitus, Fibromyalgia, Hypertension Additional Family Medical History / Comment(s): heart stent,uterine and ovarian ca Father Family Medical History: Myocardial Infarction ([place]) Additional Family Medical History / Comment(s): [place] x 2, committed suicide when pt at 17 yrs old. General Exam Limitations: no limitations General appearance: alert, in no apparent distress, obese Head exam: Present: atraumatic, normocephalic, normal inspection Eye exam: Present: normal appearance, PERRL, EOMI Pupils: Present: normal accommodation ENT exam: Present: normal exam, mucous membranes moist, TM's normal bilaterally, normal external ear exam. Absent: normal oropharynx (Right tonsil enlargement but no exudates.), other (No signs of peritonsillar abscess.) Neck exam: Present: normal inspection, full ROM, lymphadenopathy (Left anterior cervical). Absent: tenderness Respiratory exam: Present: normal lung sounds bilaterally. Absent: respiratory distress, wheezes, rales, stridor Cardiovascular Exam: Present: regular rate, normal rhythm, normal heart sounds GI/Abdominal exam: Present: soft. Absent: distended, tenderness, rebound Extremities exam: Present: normal inspection, full ROM, normal capillary refill. Absent: tenderness Back exam: Present: normal inspection, full ROM. Absent: tenderness, CVA tenderness (R), CVA tenderness (L) Neurological exam: Present: alert, oriented X3, normal gait Psychiatric exam: Present: normal affect, normal mood Skin exam: Present: warm, dry, intact, normal color Course Vital Signs 03/31/20 03/31/20 18:57 19:36 Temperature 98.8 F Pulse Rate 82 Respiratory 20 20 Rate Blood Pressure 134/87 O2 Sat by Pulse 99 Oximetry Medical Decision Making - Medical Decision Making Patient is a 29-year-old female presenting to emergency Department with chief complaint cough congestion shortness of breath. On physical exam her lungs are clear to auscultation bilaterally. Patient is not in any respiratory distress. She does appear to have a right sided tonsillar erythema and enlargement but no exudates. She does lymphadenopathy as well. Her vitals are stable. Patient was tested for coronavirus and is pending results. Chest x-ray is unremarkable. Rapid strep is also negative. Patient will be treated for tonsillitis. I suspect the cough is secondary to the sore throat. Patient is PERC negative. No d-dimer necessary at this time. Patient advised to stop isolated take Tyl enol only if she develops a fever until she receives her coronavirus testing results. Patient will be treated for tonsillitis with Augmentin. Return parameters were thoroughly discussed the patient is understanding and agreeable. - Lab Data Lab Results 03/31/20 Range/Units 19:34 Group A Strep Rapid Negative (Negative) Disposition Clinical Impression: Tonsillitis, Cough, Shortness of breath Disposition: HOME SELF-CARE Condition: Stable Additional Instructions: Take prescribed medication as directed. Take Tylenol only and self-isolation until you received results of the coronavirus testing. Return to emergency dep artment if symptoms worsen. Follow with primary care. Prescriptions: Amoxicillin/Potassium Clav [Augmentin 875-125 Tablet] 1 tab PO Q12HR #20 tab Is patient prescribed a controlled substance at d/c from ED?: No Referrals: Bobbi Santiago MD [Primary Care Provider] - 1-2 days Time of Disposition: 20:55
--- NOTE | 2020-03-31 20:04 | XR ---
EXAMINATION TYPE: XR chest 2V DATE OF EXAM: 03/31/2020 COMPARISON: 07/30/2015 HISTORY: Cough TECHNIQUE: FINDINGS: Heart and mediastinum are normal. Lungs are clear. Diaphragm is normal. Bony thorax appears normal. IMPRESSION: Normal chest. No change.
[2020-03-31] MEDS ORDERED: AMOXIC-POT CLAV 875-125MG 1 EACH TAB PO STA (20:35)
== END 2020-03-31 21:03 | disposition home or self-care (01) ==
LOC: EC 18:46
DX: J03.90 Acute tonsillitis, unspecified (principal); R05 Cough; R06.02 Shortness of breath; R09.89 Other specified symptoms and signs involving the circulatory and respiratory systems; R35.0 Frequency of micturition; R10.9 Unspecified abdominal pain; Z91.040 Latex allergy status; Z88.6 Allergy status to analgesic agent; Z88.5 Allergy status to narcotic agent; Z87.891 Personal history of nicotine dependence; Z87.440 Personal history of urinary (tract) infections
CPT/HCPCS: 71046; 87081; 87430; 99285

== ENCOUNTER → 2020-03-31 | Outpatient (CLI) | payer BC, OTHER | END | disposition home or self-care (01) | LOC: LABWHC1 10:32 | PROVIDERS: ATTEND Emergency Medicine | DX: Z20.828 Contact with and (suspected) exposure to other viral communicable diseases (principal) | CPT/HCPCS: U0003; C9803 ==

== ENCOUNTER 2020-12-24 09:50 | Emergency (ER) | payer BC, OTHER ==
[2020-12-24 10:12] VITALS: BP 113/68; PULSE 86; RESP 18; TEMP 98.7
[2020-12-24] MEDS ORDERED: SODIUM CHLORIDE 0.9% 1,000 ML IV ONE (11:13)
--- NOTE | 2020-12-24 11:16 | ED ---
General Adult HPI - General Chief complaint: Urogenital Stated complaint: poss miscarriage Time Seen by Provider: 12/24/20 11:01 Source: patient, RN notes reviewed Mode of arrival: ambulatory Limitations: no limitations - History of Present Illness Initial comments: 30-year-old female who suspects she is currently 6 weeks presents to the emergency room for abdominal pain. Patient reports she thinks she might be miscarrying. Patient reports she is having right lower quadrant pain and has a history of several miscarriages. Patient denies vaginal bleeding. Patient states this pain started last night. Patient states she has not taken Tylenol or anything for this as she does not like to when she is .Patient has no other complaints at this time including shortness of breath, chest pain, nausea or vomiting, headache, or visual changes. - Related Data Home Medications Medication Instructions Recorded Confirmed Gummies 1 tab PO DAILY 06/29/18 06/29/18 Previous Rx's Medication Instructions Recorded Cephalexin [Keflex] 500 mg PO Q12HR #14 cap 06/27/18 Acetaminophen [Tylenol] 1,000 mg PO Q4-6H PRN #24 tab 06/29/18 Amoxicillin/Potassium Clav 1 tab PO Q12HR #20 tab 03/31/20 [Augmentin 875-125 Tablet] Allergies Allergy/AdvReac Type Severity Reaction Status Date / Time latex Allergy Rash/Hives Verified 12/24/20 10:12 naproxen Allergy Rash/Hives Verified 12/24/20 10:12 tramadol HCl [From Ultram] Allergy Rash/Hives Verified 12/24/20 10:12 Review of Systems ROS Statement: Those systems with pertinent positive or pertinent negative responses have been documented in the HPI. ROS Other: All systems not noted in ROS Statement are negative. Past Medical History Past Medical History: No Reported History Additional Past Medical History / Comment(s): miscarriage History of Any Multi-Drug Resistant Organisms: None Reported Past Surgical History: Section, Cholecystectomy, Hernia Repair, Orthopedic Surgery Additional Past Surgical History / Comment(s): carpal tunnel release right hand Past Anesthesia/Blood Transfusion Reactions: No Reported Reaction Additional Past Anesthesia/Blood Transfusion Reaction / Comment(s): elevated heart rate during procedure Past Psychological History: Anxiety, Bipolar Smoking Status: Former smoker Past Alcohol Use History: None Reported Past Drug Use History: Marijuana - Past Family History Mother Family Medical History: Cancer, Coronary Artery Disease (CAD), Diabetes Mellitus, Fibromyalgia, Hypertension Additional Family Medical History / Comment(s): heart stent,uterine and ovarian ca Father Family Medical History: Myocardial Infarction (DC) Additional Family Medical History / Comment(s): DC x 2, committed suicide when pt at 17 yrs old. General Exam Limitations: no limitations General appearance: alert, in no apparent distress Head exam: Present: atraumatic, normocephalic, normal inspection Eye exam: Present: normal appearance, PERRL, EOMI. Absent: scleral icterus, conjunctival injection, periorbital swelling ENT exam: Present: normal exam, mucous membranes moist Neck exam: Present: normal inspection. Absent: tenderness, meningismus, lymphadenopathy Respiratory exam: Present: normal lung sounds bilaterally. Absent: respiratory distress, wheezes, rales, rhonchi, stridor Cardiovascular Exam: Present: regular rate, normal rhythm, normal heart sounds. Absent: systolic murmur, diastolic murmur, rubs, gallop, clicks GI/Abdominal exam: Present: soft, tenderness (Tenderness noted right lower quadrant, no tenderness upper abdomen or LLQ ), normal bowel sounds. Absent: distended, guarding, rebound, rigid Course Vital Signs 12/24/20 10:09 Temperature 98.7 F Pulse Rate 86 Respiratory 18 Rate Blood Pressure 113/68 O2 Sat by Pulse 100 Oximetry Medical Decision Making - Medical Decision Making Vitals are stable. CBC CMP unremarkable. Patient is some minimal right lower quadrant tenderness. She refuses pelvic exam stating she has had these before and similar situations and it does not tell her anything. HCG is 18,000. Ultrasound does show an early intrauterine gestational estimated at 5 weeks 2 days based on mean sac diameter. pole is not identified. On reevaluation patient is sitting up in bed, in no acute pain or distress. I had a lengthy discussion with patient that she must repeat her hCG in 2 days to no the course of this . She will call her [employer] OPERATOR tomorrow. If she starts having worsening abdominal pain she will return to the emergency room. I discussed this case with attending Dr. Gomez who agrees with this assessment and treatment plan. - Lab Data Result diagrams: 12/24/20 12:00 12/24/20 12:00 Lab Results 12/24/20 12/24/20 12/24/20 Range/Units 11:55 12:00 12:00 WBC 8.8 (3.8-10.6) k/uL RBC 4.56 (3.80-5.40) m/uL Hgb 12.7 (11.4-16.0) gm/dL Hct 38.8 (34.0-46.0) % MCV 85.0 (80.0-100.0) fL MCH 27.8 (25.0-35.0) pg MCHC 32.8 (31.0-37.0) g/dL RDW 14.0 (11.5-15.5) % Plt Count 286 (150-450) k/uL MPV 7.7 Neutrophils % 67 % Lymphocytes % 25 % Monocytes % 3 % Eosinophils % 3 % Basophils % 1 % Neutrophils # 5.9 (1.3-7.7) k/uL Lymphocytes # 2.2 (1.0-4.8) k/uL Monocytes # 0.3 (0-1.0) k/uL Eosinophils # 0.3 (0-0.7) k/uL Basophils # 0.1 (0-0.2) k/uL Sodium 135 L (137-145) mmol/L Potassium 4.0 (3.5-5.1) mmol/L Chloride 104 (98-107) mmol/L Carbon Dioxide 22 (22-30) mmol/L Anion Gap 9 mmol/L BUN 10 (7-17) mg/dL Creatinine 0.73 (0.52-1.04) mg/dL Est GFR (CKD-EPI)AfAm >90 (>60 ml/min/1.73 sqM) Est GFR (CKD-EPI)NonAf >90 (>60 ml/min/1.73 sqM) Glucose 139 H (74-99) mg/dL Calcium 8.9 (8.4-10.2) mg/dL Total Bilirubin 0.4 (0.2-1.3) mg/dL AST 19 (14-36) U/L ALT 13 (4-34) U/L Alkaline Phosphatase 65 (38-126) U/L Total Protein 6.7 (6.3-8.2) g/dL Albumin 3.7 (3.5-5.0) g/dL HCG, Quant 27197.7 mIU/mL Urine Color Urine Appearance (Clear) Urine pH (5.0-8.0) Ur Specific [place] (1.001-1.035) Urine Protein (Negative) Urine Glucose (UA) (Negative) Urine Ketones (Negative) Urine Blood (Negative) Urine Nitrite (Negative) Urine Bilirubin (Negative) Urine Urobilinogen (<2.0) mg/dL Ur Leukocyte Esterase (Negative) Urine HCG, Qual (Not Detectd) Blood Type O Positive Blood Type Recheck O Pos Bld Type Recheck Status No 12/24/20 12/24/20 Range/Units 12:04 12:04 WBC (3.8-10.6) k/uL RBC (3.80-5.40) m/uL Hgb (11.4-16.0) gm/dL Hct (34.0-46.0) % MCV (80.0-100.0) fL MCH (25.0-35.0) pg MCHC (31.0-37.0) g/dL RDW (11.5-15.5) % Plt Count (150-450) k/uL MPV Neutrophils % % Lymphocytes % % Monocytes % % Eosinophils % % Basophils % % Neutrophils # (1.3-7.7) k/uL Lymphocytes # (1.0-4.8) k/uL Monocytes # (0-1.0) k/uL Eosinophils # (0-0.7) k/uL Basophils # (0-0.2) k/uL Sodium (137-145) mmol/L Potassium (3.5-5.1) mmol/L Chloride (98-107) mmol/L Carbon Dioxide (22-30) mmol/L Anion Gap mmol/L BUN (7-17) mg/dL Creatinine (0.52-1.04) mg/dL Est GFR (CKD-EPI)AfAm (>60 ml/min/1.73 sqM) Est GFR (CKD-EPI)NonAf (>60 ml/min/1.73 sqM) Glucose (74-99) mg/dL Calcium (8.4-10.2) mg/dL Total Bilirubin (0.2-1.3) mg/dL AST (14-36) U/L ALT (4-34) U/L Alkaline Phosphatase (38-126) U/L Total Protein (6.3-8.2) g/dL Albumin (3.5-5.0) g/dL HCG, Quant mIU/mL Urine Color Light Yellow Urine Appearance Clear (Clear) Urine pH 6.5 (5.0-8.0) Ur Specific [place] 1.010 (1.001-1.035) Urine Protein Negative (Negative) Urine Glucose (UA) Negative (Negative) Urine Ketones Negative (Negative) Urine Blood Negative (Negative) Urine Nitrite Negative (Negative) Urine Bilirubin Negative (Negative) Urine Urobilinogen <2.0 (<2.0) mg/dL Ur Leukocyte Esterase Negative (Negative) Urine HCG, Qual Detected (Not Detectd) Blood Type Blood Type Recheck Bld Type Recheck Status Disposition Clinical Impression: Abdominal pain in Disposition: HOME SELF-CARE Condition: Good Instructions (If sedation given, give patient instructions): Abdominal Pain in (ED) Additional Instructions: You must repeat your hCG in 2 days at the outpatient lab. Follow up with your [facility] OPERATOR tomorrow. If you start to have worsening abdominal pain you need to return to the emergency room. Is patient prescribed a controlled substance at d/c from ED?: No Referrals: Bobbi Santiago MD [Primary Care Provider] - 1-2 days Time of Disposition: 14:16
[2020-12-24 12:30] LABS: Basophils # (A) 0.1 k/uL (0-0.2); Basophils % (A) 1 %; Eosinophils # (A) 0.3 k/uL (0-0.7); Eosinophils % (A) 3 %; HCT 38.8 % (34.0-46.0); HGB 12.7 gm/dL (11.4-16.0); Lymphocytes # (A) 2.2 k/uL (1.0-4.8); Lymphocytes % (A) 25 %; MCH 27.8 pg (25.0-35.0); MCHC 32.8 g/dL (31.0-37.0); Mean Platelet Volume 7.7; Monocytes # (A) 0.3 k/uL (0-1.0); Monocytes % (A) 3 %; Neutrophils # (A) 5.9 k/uL (1.3-7.7); Neutrophils % (A) 67 %; Platelet Count 286 k/uL (150-450); RBC 4.56 m/uL (3.80-5.40); WBC 8.8 k/uL (3.8-10.6)
[2020-12-24 12:32] LABS: Appearance,Urine Clear (Clear); Bilirubin,Urine Negative (Negative); Blood,Urine Negative (Negative); Color,Urine Light Yellow; Glucose,Urine (UA) Negative (Negative); Ketones,Urine Negative (Negative); Leukocyte Esterase,Urine Negative (Negative); Nitrite,Urine Negative (Negative); PH, Urine 6.5 (5.0-8.0); Protein,Urine Negative (Negative); Urobilinogen,Urine <2.0 mg/dL (<2.0)
[2020-12-24 13:06] LABS: ALT 13 U/L (4-34); AST 19 U/L (14-36); African American GFR (CKD) >90 (>60 ml/min/1.73 sqM); Albumin 3.7 g/dL (3.5-5.0); Alkaline Phosphatase 65 U/L (38-126); Anion Gap 9 mmol/L; Blood Urea Nitrogen 10 mg/dL (7-17); Calcium 8.9 mg/dL (8.4-10.2); Carbon Dioxide 22 mmol/L (22-30); Chloride 104 mmol/L (98-107); Glucose 139 mg/dL (74-99); Non-African American GFR(CKD) >90 (>60 ml/min/1.73 sqM); Sodium 135 mmol/L (137-145); Total Bilirubin 0.4 mg/dL (0.2-1.3); Total Protein 6.7 g/dL (6.3-8.2)
--- NOTE | 2020-12-24 13:06 | US ---
EXAMINATION TYPE: Transabdominal DATE OF EXAM: 12/24/2020 12:37 PM COMPARISON: NONE CLINICAL HISTORY: pain. Right sided pelvic pain EXAM PERFORMED: Transvaginal (TV) and Transabdominal (TA) EXAM MEASUREMENTS: GESTATIONAL AGE / DATING Physician Established: Not yet established Dates by LMP: 10/22/2020 (9 weeks/0 days) EDC: 07/29/2021 Dates by First Scan: No previous this is first scan Dates by Current Scan for: only gestational sac and yolk seen on today's exam (5 weeks/2 days) EDC: 08/24/2021 by gestational sac only. MATERNAL ANATOMY Uterus: 7.5 x 4.2 x 5.9 cm Right Ovary: 3.3 x 2.7 x 3.3 cm Left Ovary: 2.4 x 1.6 x 1.9 cm Post CDS / Adnexa: small amount of fluid adjacent to right ovary Presence of corpus luteal cyst: thick rinded lesion with peripheral flow measures 2.4 x 1.9 x 2.5 cm, could represent corpus luteal cyst. Presence of subchorionic bleed: 0.9 x 0.9 x 0.8 cm hypoechoic area adjacent to gestational sac. GESTATION / SURVEY MSD: 1.2 cm (5 weeks/2 days) Yolk Sac (normal less than 6mm): 0.2 cm Date of LMP: early October per patient. Beta HcG (if available): not available Gestational sac and yolk sac seen within uterus could represent early that does not correla te with patient's LMP. Other etiologies not excluded at this time. Recommend serial beta HcG. IMPRESSION: Early intrauterine estimated at 5 weeks 2 days gestation based on the mean sac diameter. Fe florinda pole is not identified. Short-term follow-up and correlation with beta-hCG is recommended.
[2020-12-24 13:53] LABS: HCG,Quantitative Serum 18212.7 mIU/mL
== END 2020-12-24 14:47 | disposition home or self-care (01) ==
LOC: EC 09:50
DX: O26.891 Other specified pregnancy related conditions, first trimester (principal); O99.341 Other mental disorders complicating pregnancy, first trimester; R10.31 Right lower quadrant pain; F41.9 Anxiety disorder, unspecified; Z87.891 Personal history of nicotine dependence; Z3A.01 Less than 8 weeks gestation of pregnancy
CPT/HCPCS: 36415; 76801; 76817; 80053; 81003; 81025; 84702; 85025; 86900; 86901; 96360; 99284

== ENCOUNTER 2021-07-05 11:10 | Outpatient (CLI) | payer OTHER ==
[2021-07-05] MEDS ORDERED: BETAMET ACET-BETAMETH SOD PHOS 6 MG/ML MDV IM SCH (12:00)
[2021-07-05 12:37] VITALS: BP 128/70; PULSE 93; RESP 16; TEMP 97.2
== END 2021-07-05 12:16 ==
LOC: FBPOP 11:10
PROVIDERS: ATTEND Obstetrics & Gynecology
DX: O26.893 Other specified pregnancy related conditions, third trimester (principal); R10.2 Pelvic and perineal pain; Z3A.33 33 weeks gestation of pregnancy; Z91.040 Latex allergy status; Z88.5 Allergy status to narcotic agent; Z88.6 Allergy status to analgesic agent; Z87.891 Personal history of nicotine dependence
CPT/HCPCS: 59025; 96372; J0702

== ENCOUNTER 2021-07-06 15:55 | Outpatient (CLI) | payer OTHER ==
[2021-07-06] MEDS ORDERED: BETAMET ACET-BETAMETH SOD PHOS 6 MG/ML MDV IM SCH (16:00)
== END 2021-07-06 16:07 ==
LOC: FBPOP 15:55
PROVIDERS: ATTEND Obstetrics & Gynecology
DX: O26.893 Other specified pregnancy related conditions, third trimester (principal); Z3A.33 33 weeks gestation of pregnancy; Z91.040 Latex allergy status
CPT/HCPCS: 96372; J0702

== ENCOUNTER 2021-07-12 10:57 | Outpatient (CLI) | payer OTHER ==
--- NOTE | 2021-07-12 11:54 | US ---
EXAMINATION TYPE: US OB >= 14 wk fetus DATE OF EXAM: 07/12/2021 COMPARISON: None CLINICAL HISTORY: abd pain, possible bleeding abdominal pain. technical limitations due to patient's body habitus TECHNIQUE: Transabdominal (TA) GESTATIONAL AGE / DATING Physician Established: (34 weeks/0 days) EDC: 08/23/21 Dates by LMP: LMP unknown Dates by First Scan: (33 weeks/6 days) EDC: 08/24/21 Dates by Current Scan: (34 weeks/1 days) EDC: 08/22/21 SURVEY IUP: Single PLACENTA: Anterior/fundal PREVIA: No Previa EVELYN: 13.4 cm Normal CERVICAL LENGTH (transabdominal: norm > 3.0cm): 3.0 cm BIOMETRY PRESENTATION: Vertex LIE: Longitudinal BPD: 8.2 cm 33 weeks / 1 days HC: 30.5 cm 34 weeks / 0 days AC: 30.6 cm 34 weeks / 4 days FL: 6.8 cm 35 weeks / 4 days ESTIMATED WEIGHT IN GRAMS: 2412 grams ESTIMATED WEIGHT IN LBS/OZ: 5 lbs. 5 oz. WEIGHT PERCENTAGE BASED ON ESTABLISHED DATES: 55% HC/AC: 1.00 Normal FL/AC: 22% Normal HEART RATE: 146 bpm RHYTHM: Normal MATERNAL WALL MEASUREMENT: 4.7 cm from skin to anterior uterine wall (if exam limited due to body hab itus). IMPRESSION: Single viable intrauterine is noted.
[2021-07-12 12:23] VITALS: BP 134/82; PULSE 105; RESP 20; TEMP 96.5
== END 2021-07-12 12:15 | disposition home or self-care (01) ==
LOC: FBPOP 10:57
PROVIDERS: ATTEND Obstetrics & Gynecology Obstetrics
DX: O26.893 Other specified pregnancy related conditions, third trimester (principal); R10.2 Pelvic and perineal pain; Z3A.33 33 weeks gestation of pregnancy; Z87.891 Personal history of nicotine dependence; Z91.040 Latex allergy status; Z88.5 Allergy status to narcotic agent; Z88.6 Allergy status to analgesic agent
CPT/HCPCS: 59025; 76805; G0463; 99213

== ENCOUNTER 2021-08-01 10:10 | Inpatient (IN) | payer OTHER ==
[2021-07-20 14:33] VITALS: BMI 51.1
[2021-08-01] MEDS ORDERED: CITRIC ACID-SODIUM CITRATE 15 ML CUP PO ONE (10:43)
[2021-08-01 11:03] LABS: Basophils % (A) 0 %; Eosinophils # (A) 0.2 k/uL (0-0.7); Eosinophils % (A) 1 %; HCT 33.2 % (34.0-46.0); HGB 11.2 gm/dL (11.4-16.0); Lymphocytes # (A) 1.8 k/uL (1.0-4.8); Lymphocytes % (A) 15 %; MCH 27.9 pg (25.0-35.0); MCHC 33.6 g/dL (31.0-37.0); MCV 83.2 fL (80.0-100.0); Mean Platelet Volume 8.5; Monocytes # (A) 0.6 k/uL (0-1.0); Monocytes % (A) 5 %; Neutrophils # (A) 9.4 k/uL (1.3-7.7); Neutrophils % (A) 77 %; Platelet Count 267 k/uL (150-450); Poikilocytosis Slight; RBC 3.99 m/uL (3.80-5.40); RDW 14.4 % (11.5-15.5); WBC 12.1 k/uL (3.8-10.6)
[2021-08-01] MEDS: LACTATED RINGERS 1,000 ML IV SCH ×3 (11:20→21:22)
[2021-08-01] MEDS ORDERED: KETOROLAC 15 MG/ML 1 ML VIAL ONE (12:06)
[2021-08-01] MEDS ORDERED: MORPHINE SULFATE (PF) 0.3 MG/0.3 ML SYR ONE (12:06)
[2021-08-01] MEDS ORDERED: NALBUPHINE 10 MG/ML (1 ML AMP) ONE (12:06)
[2021-08-01] MEDS ORDERED: OXYTOCIN 30 UNITS/500 ML NS BAG IV ONE (12:06)
[2021-08-01] MEDS ORDERED: DEXAMETHASONE SOD PHOSPHATE 10 MG/ML 1 ML VIAL ONE (12:06)
--- NOTE | 2021-08-01 13:04 | P.HPOB ---
History of Present Illness H&P Date: 08/01/21 This is a 31-year-old white female 5 para 20-2 EDC 08/23/2021 at 36-6/7 weeks' gestation who presents for repeat low transverse section per recommendation of maternal medicine for chronic proteinuria. Her history is significant for extensive abdominal mesh that was placed per Dr. Coe. Fetus is been active throughout the . Weekly nonstress testing has been reactive. Patient is requesting permanent tubal sterilization. Past medical history is significant for bipolar disorder, obesity, pelvic inflammatory disease. Past surgical history umbilical hernia repair with mesh in 2019, colonoscopy, cholecystectomy, previous section 2. Current medications low-dose aspirin daily, vitamin daily. ALLERGIES latex to which reports a rash and hives, Naprosyn and Ultram to which she reports a rash and itching. Family history significant for autism, spina bifida, hypertension, cardiomyopathy, asthma. Obstetric history is significant for 2 prior deliveries, both section, 2013 in 2016. Social history patient is single, father of the baby is present and involved. Former tobacco smoker, denies tobacco with . She has a history of marijuana use as well. history blood type is O+, rubella status immune. VDRL testing, urine culture, hepatitis B surface antigen, HIV testing, gonorrhea and chlamydia cultures all negative. One-hour Glucola 113, 3 hour GTT within normal limits. On exam patient is 5 foot 0 inches, 269 pounds, blood pressure 135/81, pulse 83, respirations 16, temperature 98.2. General physical exam is within normal limits. Chest is clear in all kauffman. Extremities reveal no edema. hea rt rate is consistent with reactive NST. Abdomen is soft, obese, umbilicus surgically removed. Impression: 36-6/7 weeks intrauterine , here for repeat low transverse section with tubal ligation per recommendation of maternal medicine. History of extensive abdominal mesh placed, Dr. Coe present. [place] strep cultures negative. Undesired fertility, requesting tubal ligation. Plan: We will proceed with repeat low transverse section, Dr. Coe to open the skin in the event that the abdominal mesh is in our surgical field. We will plan on tubal ligation utilizing Filshie clips. Risks benefits and ALL CONSIDERATIONS ARE REVIEWED WITH THE PATIENT. Review of Systems Constitutional: Reports as per HPI Past Medical History Past Medical History: No Reported History Additional Past Medical History / Comment(s): miscarriage History of Any Multi-Drug Resistant Organisms: None Reported Past Surgical History: Section, Cholecystectomy, Hernia Repair, Orthopedic Surgery Additional Past Surgical History / Comment(s): carpal tunnel release right hand Past Anesthesia/Blood Transfusion Reactions: No Reported Reaction Additional Past Anesthesia/Blood Transfusion Reaction / Comment(s): elevated heart rate during procedure Past Psychological History: Anxiety, Bipolar Smoking Status: Former smoker - Past Family History Mother Family Medical History: Cancer, Coronary Artery Disease (CAD), Diabetes Mellitus, Fibromyalgia, Hypertension Additional Family Medical History / Comment(s): heart stent,uterine and ovarian ca Father Family Medical History: Myocardial Infarction (SD) Additional Family Medical History / Comment(s): SD x 2, committed suicide when pt at 17 yrs old. Medications and Allergies Home Medications Medication Instructions Recorded Confirmed Type Aspirin [[place] Aspirin EC] 162 mg PO DAILY 07/05/21 08/01/21 History Ergocalciferol [Vitamin D2 (1250 1,250 mcg PO WEEKLY 07/05/21 08/01/21 History Mcg = 44772 Iu)] Pnv,Calcium 72/Iron/Folic Acid 1 tab PO DAILY 07/05/21 08/01/21 History [ Plus Tablet] Calcium Carbonate [Tums] 1,000 mg PO QID PRN 07/20/21 08/01/21 History Allergies Allergy/AdvReac Type Severity Reaction Status Date / Time latex Allergy Rash/Hives Verified 08/01/21 10:31 naproxen Allergy Rash/Hives Verified 08/01/21 10:31 tramadol HCl [From Ultram] Allergy Rash/Hives Verified 08/01/21 10:31 Exam Vital Signs Temp Pulse Resp BP Pulse Ox 08/01/21 10:30 98.2 F 83 16 135/81 97 Intake and Output 07/31/21 08/01/21 08/01/21 22:59 06:59 14:59 Output Total 75 Balance -75 Output: Urine 75 Uretheral (Pike) 75 Other: Weight 118.841 kg See dictation under HPI please Results Result Diagrams: 08/01/21 10:42 Abnormal Lab Results - Last 24 Hours (Table) 08/01/21 Range/Units 10:42 WBC 12.1 H (3.8-10.6) k/uL Hgb 11.2 L (11.4-16.0) gm/dL Hct 33.2 L (34.0-46.0) % Neutrophils # 9.4 H (1.3-7.7) k/uL Assessment and Plan Assessment: 36-6/7 weeks intrauterine , here for repeat low transverse section and tubal ligation. Extensive abdominal mesh noted. Group B strep cultures negative. Plan: Repeat low transverse section, tubal ligation. Dr. Coe here for opening of the wound, and possible closure pending position of the mesh. All questions answered, consents signed. Time with Patient: Greater than 30
[2021-08-01] MEDS ORDERED: NALOXONE 0.4 MG/ML 1 ML VIAL IV PRN ×2 (13:08→13:13)
[2021-08-01] MEDS ORDERED: diphenhydrAMINE 50 MG/ML 1 ML VIAL IVP PRN ×2 (13:08)
[2021-08-01] MEDS ORDERED: ZOLPIDEM 5 MG TAB PO PRN (13:08)
[2021-08-01] MEDS ORDERED: diphenhydrAMINE 25 MG CAP PO PRN (13:08)
[2021-08-01] MEDS ORDERED: ONDANSETRON 4 MG/2 ML VIAL IVP PRN (13:08)
[2021-08-01] MEDS ORDERED: METOCLOPRAMIDE 5 MG/ML 2 ML VIAL IVP PRN (13:08)
[2021-08-01] MEDS ORDERED: SIMETHICONE 80 MG CHEWABLE PO PRN (13:08)
[2021-08-01] MEDS ORDERED: diphenhydrAMINE 50 MG CAP PO PRN (13:08)
--- NOTE | 2021-08-01 13:08 | P.OP ---
Date of Procedure: 08/01/21 Preoperative Diagnosis: 36-6/7 weeks intrauterine , chronic proteinuria, morbid obesity. Abdominal mesh placed 2 years ago per general surgery. Undesired fertility. Postoperative Diagnosis: Same, liveborn female infant, 7 lbs. 4 oz. or 3300 g. Left occiput transverse position. Procedure(s) Performed: Repeat low transverse section and tubal ligation Anesthesia: spinal Surgeon: Marva Conteh Delivery Lead #1: Jewell Lew Estimated Blood Loss (ml): 200 IV fluids (ml): 700 Urine output (ml): 400 Pathology: other (Placenta) Condition: stable Disposition: PACU Operative Findings: Liveborn female infant, left occiput transverse position, Apgars 9 and 9, 7 lbs. 4 oz., 3300 g. No involvement of the abdominal wall mesh Description of Procedure: Patient is brought to the [facility] and suite where a spinal analgesia is administered without difficulty with Duramorph. The appropriate timeout is performed to assure proper patient and procedural identification. Antibiotics are given. The abdomen is prepped and draped in usual sterile fashion. Analgesia is checked and noted to be normal. Dr. Coe is in attendance, repeat low transverse skin incision is made in this is carried down through the subcutaneous tissue which is approximately 8-10 cm deep. Fascia is isolated, scored, extended bilaterally with curved Lazar scissors. Peritoneum is next identified and incised, there is no bowel or bladder involvement. Her incision is inferior to the previously placed extensive abdominal wall mesh, therefore Dr. Coe exits the room. Bladder blade is placed over the bladder after a bladder flap is created. Subsequently, the bladder blade is removed and the disposable ring retractor is placed for excellent exposure. A repeat low transverse uterine incision is made in this is carried down through the myometrium. Artificial amniorrhexis reveals clear fluid. is delivered left occiput transverse, oropharynx, nasopharynx, and external nares were all bulb suction. Patient is officially delivered of a liveborn female infant at 1225 hours. Umbilical cord is doubly clamped and ligated, she is handed to waiting nurses for evaluation where scores of 9 and 9 at one and 5 minutes respectively are given. Infant weighs 3300 g or 7 lbs. 4 oz. Placenta is delivered manually, it is inspected and noted to be intact with trivascular cord at 1226 hours. It is sent to pathology for evaluation. The uterus is then externalized and massaged. It is swept clean with a sterile sponge to avoid any retained products of conception. The uterus is closed in a single full-thickness stitch of 0 Vicryl suture for excellent reapproximation and hemostasis. Bilateral tubes and ovaries are inspected and noted to be normal. Filshie clips are placed in the isthmic portion of the tubes with care to traverse the entire diameter of the tubes into the mesal salpinx. Abdomen is suctioned with suction on guard. Uterus is gently placed back into the abdominal cavity. Bilateral gutters are inspected and cleaned. Peritoneum was allowed to close by secondary intention. Fascia is closed in a running stitch of 0 Vicryl with over ligation in the midline. Subcutaneous tissue is irrigated, clean and dry. It is reapproximated with 3-0 Vicryl. 4-0 undyed Monocryl issues for final skin closure. Steri-Strips and Mastisol are applied to the wound. All sponge needle and enhancement counts are correct. Patient is brought back to the recovery room in very good condition with stable vital signs including a pulse of 90, blood pressure 115/70. Pike is noted to be draining clear urine.
[2021-08-01] MEDS ORDERED: NALBUPHINE 10 MG/ML (1 ML AMP) IV PRN (13:13)
[2021-08-01] MEDS ORDERED: HYDROmorphone 0.5 MG/0.5 ML SYRINGE IVP PRN (13:13)
[2021-08-01] MEDS ORDERED: KETOROLAC 30 MG/ML 1 ML VIAL IVP PRN (13:13)
[2021-08-01] MEDS: ACETAMINOPHEN TAB 500 MG TAB PO SCH ×2 (16:41→21:23)
[2021-08-01] MEDS: IBUPROFEN 600 MG TAB PO SCH (21:23)
[2021-08-01] MEDS: SENNOSIDES-DOCUSATE SODIUM 1 EACH TAB PO SCH (21:23)
[2021-08-02 00:30] VITALS: RESP 18
[2021-08-02] MEDS: IBUPROFEN 600 MG TAB PO SCH ×2 (00:41→05:20)
[2021-08-02] MEDS: ACETAMINOPHEN TAB 500 MG TAB PO SCH ×3 (00:41→14:11)
[2021-08-02] MEDS: LACTATED RINGERS 1,000 ML IV SCH (05:19)
[2021-08-02 06:24] LABS: Basophils % (A) 0 %; Eosinophils # (A) 0.1 k/uL (0-0.7); Eosinophils % (A) 0 %; HCT 29.9 % (34.0-46.0); HGB 10.1 gm/dL (11.4-16.0); Lymphocytes # (A) 2.2 k/uL (1.0-4.8); Lymphocytes % (A) 15 %; MCH 28.3 pg (25.0-35.0); MCHC 33.8 g/dL (31.0-37.0); Mean Platelet Volume 8.6; Monocytes # (A) 0.8 k/uL (0-1.0); Monocytes % (A) 5 %; Neutrophils # (A) 11.6 k/uL (1.3-7.7); Neutrophils % (A) 78 %; Platelet Count 263 k/uL (150-450); RBC 3.56 m/uL (3.80-5.40); RDW 14.5 % (11.5-15.5); WBC 14.8 k/uL (3.8-10.6)
[2021-08-02] MEDS: SENNOSIDES-DOCUSATE SODIUM 1 EACH TAB PO SCH (07:29)
--- NOTE | 2021-08-02 07:59 | P.DS ---
Providers Date of admission: 08/01/21 10:10 Expected date of discharge: 08/02/21 Attending physician: Marva Conteh Primary care physician: Stated None Hospital Course: This is a 31 year old at 36 6/7 weeks who presented for repeat C/S and TL per recommendation of MFM for chronic proteinuria. GBS (-), see dictation for details. She underwent at repeat LT C/S and gave to a female 7#4oz, Apgars 9 and 9, EBL 200cc. See dictation. Dr. Coe was present for incisional opening due to the extensive abdomenal wall mesh previously placed, no issues were encountered. This morning the patient is requesting discharge home. She is voiding, ambulating, passing flatus, tolerating food. Incision is clean and dry, steri strips intact. Fundus is firm, nontender, midline, below the umbilicus. She certainly is in good condition for discharge and will go home after dinner pending cemetery manager's assesment of . She will use OTC motrin or tylenol as needed, call with any pain not alleviated by OTC meds. Breast pump pre scription is given. She will follow up with me in two weeks. Discharge instructions are reviewed in detail. Assessment: Doing very well first post operative day Patient Condition at Discharge: Good Plan - Discharge Summary New Discharge Prescriptions: No Action Pnv,Calcium 72/Iron/Folic Acid [ Plus Tablet] 1 tab PO DAILY Aspirin [Gap Aspirin EC] 162 mg PO DAILY Ergocalciferol [Vitamin D2 (1250 Mcg = 04773 Iu)] 1,250 mcg PO WEEKLY Calcium Carbonate [Tums] 1,000 mg PO QID PRN PRN Reason: reflux Discharge Medication List Aspirin [Gap Aspirin EC] 162 mg PO DAILY 07/05/21 [History] Ergocalciferol [Vitamin D2 (1250 Mcg = 74852 Iu)] 1,250 mcg PO WEEKLY 07/05/21 [History] Pnv,Calcium 72/Iron/Folic Acid [ Plus Tablet] 1 tab PO DAILY 07/05/21 [History] Calcium Carbonate [Tums] 1,000 mg PO QID PRN 07/20/21 [History] Follow up Appointment(s)/Referral(s): Marva Conteh MD [STAFF PHYSICIAN] - 2 Weeks Discharge Disposition: HOME SELF-CARE
--- NOTE | 2021-08-02 08:49 | P.PN ---
Progress Note - Text Progress Note Date: 08/02/21 Ms. Govea is a 31 -year-old female had a history of under spinal rosy lgesia with Astramorph 300 g for postop pain. Today patient is comfortable sitting in her bed. Today patient rated her pain level 2 out of 10 in severity. Patient had itching on her face, and body yesterday. Denied any fever, drowsiness, confusion. Denied any weakness, tingling sensation in her lower extremities. Denied any bowel or bladder problems. Moving all extremities without any difficulty. Able to walk without any difficulties. Vitals: Hemodynamically stable Continue oral pain medication as per primary team.
[2021-08-02 12:33] VITALS: BP 133/88; PULSE 91; TEMP 98.3
== END 2021-08-02 15:10 | disposition home or self-care (01) | DRG 785 ==
LOC: 4FBP 10:10
PROVIDERS: ADMIT Obstetrics & Gynecology; ATTEND Obstetrics & Gynecology
PROC: 0UB70ZZ Excision of Bilateral Fallopian Tubes, Open Approach (ICD-10-PCS; 2021-08-01)
PROC: 4A0HX4Z Measurement of Products of Conception, Cardiac Electrical Activity, External Approach (ICD-10-PCS; 2021-08-01)
PROC: 10D00Z1 Extraction of Products of Conception, Low, Open Approach (ICD-10-PCS; principal; 2021-08-01 12:06)
DX: O34.211 Maternal care for low transverse scar from previous cesarean delivery (principal); O99.344 Other mental disorders complicating childbirth; O99.214 Obesity complicating childbirth; O12.14 Gestational proteinuria, complicating childbirth; O69.5XX0 Labor and delivery complicated by vascular lesion of cord, not applicable or unspecified; E66.01 Morbid (severe) obesity due to excess calories; F41.9 Anxiety disorder, unspecified; F31.9 Bipolar disorder, unspecified; Z91.040 Latex allergy status; Z87.891 Personal history of nicotine dependence; Z79.82 Long term (current) use of aspirin; Z3A.36 36 weeks gestation of pregnancy; Z30.2 Encounter for sterilization; Z80.41 Family history of malignant neoplasm of ovary; Z37.0 Single live birth; Z88.5 Allergy status to narcotic agent; Z87.19 Personal history of other diseases of the digestive system; Z90.49 Acquired absence of other specified parts of digestive tract; Z87.59 Personal history of other complications of pregnancy, childbirth and the puerperium
CPT/HCPCS: 85025; 86850; 86900; 86901; 88307

== ENCOUNTER 2023-01-14 18:14 | Emergency (ER) | payer OTHER ==
[2023-01-14 18:45] VITALS: BP 125/80; PULSE 90; RESP 20; TEMP 98
[2023-01-14] MEDS ORDERED: KETOROLAC 15 MG/ML 1 ML VIAL IM STA (19:31)
[2023-01-14] MEDS ORDERED: DEXAMETHASONE SOD PHOSPHATE 10 MG/ML 1 ML VIAL IM STA (19:31)
--- NOTE | 2023-01-14 20:04 | ED ---
Lower Extremity Injury HPI - General Chief Complaint: Extremity Injury, Lower Stated Complaint: Lt leg pain Time Seen by Provider: 01/14/23 19:18 Source: patient Mode of arrival: ambulatory Limitations: no limitations - History of Present Illness Initial Comments: Patient is a 32-year-old female presenting with chief complaint of a flareup of her sciatic pain. Patient states that she had a fall earlier today when she tripped over her dog and child which caused her lower back pain to worsen. Pain is shooting down the left leg. No loss of bowel or bladder control or saddle paresthesia. No head injury, no loss of consciousness, no blood thinners. She has not taken any analgesic medication at home. - Related Data Home Medications Medication Instructions Recorded Confirmed Aspirin [[place] Aspirin EC] 162 mg PO DAILY 07/05/21 08/01/21 Ergocalciferol [Vitamin D2 (1250 1,250 mcg PO WEEKLY 07/05/21 08/01/21 Mcg = 67838 Iu)] Vit No.180/Iron/Folic 1 tab PO DAILY 07/05/21 08/01/21 [ Plus Tablet] Calcium Carbonate [Tums] 1,000 mg PO QID PRN 07/20/21 08/01/21 Allergies Allergy/AdvReac Type Severity Reaction Status Date / Time latex Allergy Rash/Hives Verified 01/14/23 18:45 naproxen Allergy Rash/Hives Verified 01/14/23 18:45 tramadol HCl [From Ultram] Allergy Rash/Hives Verified 01/14/23 18:45 Review of Systems ROS Statement: Those systems with pertinent positive or pertinent negative responses have been documented in the HPI. ROS Other: All systems not noted in ROS Statement are negative. Past Medical History Past Medical History: No Reported History Additional Past Medical History / Comment(s): miscarriage History of Any Multi-Drug Resistant Organisms: None Reported Past Surgical History: Section, Cholecystectomy, Hernia Repair, Orthopedic Surgery Additional Past Surgical History / Comment(s): carpal tunnel release right hand Past Anesthesia/Blood Transfusion Reactions: No Reported Reaction Additional Past Anesthesia/Blood Transfusion Reaction / Comment(s): elevated heart rate during procedure Past Psychological History: Anxiety, Bipolar Smoking Status: Former smoker Past Alcohol Use History: None Reported Past Drug Use History: Marijuana - Past Family History Mother Family Medical History: Cancer, Coronary Artery Disease (CAD), Diabetes Mellitus, Fibromyalgia, Hypertension Additional Family Medical History / Comment(s): heart stent,uterine and ovarian ca Father Family Medical History: Myocardial Infarction ([place]) Additional Family Medical History / Comment(s): [place] x 2, committed suicide when pt at 17 yrs old. General Exam Limitations: no limitations General appearance: alert, in no apparent distress Head exam: Present: atraumatic, normocephalic, normal inspection Eye exam: Present: normal appearance, EOMI. Absent: scleral icterus, periorbital swelling Neck exam: Present: normal inspection, full ROM Back exam: Present: normal inspection Neurological exam: Present: alert, oriented X3, CN II-XII intact Psychiatric exam: Present: normal affect, normal mood Skin exam: Present: warm, dry, intact, normal color. Absent: rash Course Vital Signs 01/14/23 18:42 Temperature 98.0 F Pulse Rate 90 Respiratory 20 Rate Blood Pressure 125/80 O2 Sat by Pulse 97 Oximetry Medical Decision Making - Medical Decision Making Was pt. sent in by a medical professional or institution (Dr. PA, DIVISION TRAFFIC SUPERINTENDENT, urgent care, hospital, or shelter...) When possible be specific @ -No Did you speak to anyone other than the patient for history (EMS, parent, family, police, friend...)? What history was obtained from this source @ -No Did you review nursing and triage notes (agree or disagree)? Why? @ -I reviewed and agree with nursing and triage notes Were old charts reviewed (outside hosp., previous admission, EMS record, old EKG, old radiological studies, urgent care reports/EKG's, shelter records)? Report findings @ -No old charts were reviewed Differential Diagnosis (chest pain, altered mental status, abdominal pain women, abdominal pain men, vaginal bleeding, weakness, fever, dyspnea, syncope, headache, dizziness, GI bleed, back pain, seizure, CVA, palpatations, mental health, musculoskeletal)? @ - MDM Differential Back Pain: Strain, zoster, cauda equina syndrome, epidural abscess, vertebral osteomyelitis, discitis, fracture, subluxation, disc herniation, DJD, spinal stenosis, dissection, AAA, pancreatitis, peptic ulcer disease, pyelonephritis, kidney stone this is not meant to be an all-inclusive list. EKG interpreted by me (3pts min.). @ -As above X-rays interpreted by me (1pt min.). @ -None done CT interpreted by me (1pt min.). @ -None done U/S interpreted by me (1pt. min.). @ -None done What testing was considered but not performed or refused? (CT, X-rays, U/S, labs)? Why? @ -None What meds were considered but not given or refused? Why? @ -None Did you discuss the management of the patient with other professionals (professionals i.e. , PA, DIVISION TRAFFIC SUPERINTENDENT, lab, RT, psych nurse, health social work professor, mandarin tutor, teacher, financial compliance officer, case maker)? Give summary @ -No Was smoking cessation discussed for >3mins.? @ -No Was critical care preformed (if so, how long)? @ -No Were there social determinants of health that impacted care today? How? (Homelessness, low income, unemployed, alcoholism, drug addiction, transportation, low edu. Level, literacy, decrease access to med. care, skilled nursing, rehab)? @ -No Was there de-escalation of care discussed even if they declined (Discuss DNR or withdrawal of care, Hospice)? DNR status @ -No What co-morbidities impacted this encounter? (DM, HTN, Smoking, COPD, CAD, Cancer, CVA, ARF, Chemo, Hep., AIDS, mental health diagnosis, sleep apnea, morbid obesity)? @ -None Was patient admitted / discharged? Hospital course, mention meds given and route, prescriptions, significant lab abnormalities, going to OR and other pertinent info. @ -Discharge. Patient is a 32-year-old female presenting with chief complaint of lower back pain with radiation down the left leg. No red flag symptoms. Patient states that she needs a work note. She is given Toradol, Decadron, Norflex and also provided with a work note. She would like to be discharged home at this time. Follow-up with PCP. Report back to ER with any new or worsening symptoms. Discussed return parameters and answered all questions. Patient conveyed verbal understanding and agreed to the plan. I discussed this case in detail with my attending Dr. Clark Undiagnosed new problem with uncertain prognosis? @ -No Drug Therapy requiring intensive monitoring for toxicity (Heparin, Nitro, Insulin, Cardizem)? @ -No Were any procedures done? @ -No Diagnosis/symptom? @ -sciatica Acute, or Chronic, or Acute on Chronic? @ -Acute Uncomplicated (without systemic symptoms) or Complicated (systemic symptoms)? @ -uncomplicated Side effects of treatment? @ -No Exacerbation, Progression, or Severe Exacerbation? @ -No Poses a threat to life or bodily function? How? (Chest pain, [place], [place], pneumonia, PE, COPD, DKA, ARF, appy, cholecystitis, CVA, Diverticulitis, Homicidal, Suicidal, threat to staff... and all critical care pts) @ -No Disposition Clinical Impression: Sciatica Disposition: HOME SELF-CARE Condition: Good Instructions (If sedation given, give patient instructions): Sciatica (ED) Additional Instructions: Follow-up with PCP. Report back to ER with any new or worsening symptoms. Take Motrin and Tylenol as needed for pain control. Is patient prescribed a controlled substance at d/c from ED?: No Referrals: Lissette Bravo [Primary Care Provider] - 1-2 days Time of Disposition: 20:04
== END 2023-01-14 20:10 | disposition home or self-care (01) ==
LOC: EC 18:14
DX: M54.42 Lumbago with sciatica, left side (principal); F12.90 Cannabis use, unspecified, uncomplicated; Z87.891 Personal history of nicotine dependence; Z91.040 Latex allergy status; Z88.6 Allergy status to analgesic agent
CPT/HCPCS: 99283; 96372 ×2; J1100; J1885